=== PATIENT | female | born 1960 | race Caucasian/White ===

== ENCOUNTER → 2017-08-17 | Outpatient (CLI) | payer BC ==
--- NOTE | 2017-08-18 10:43 | NM ---
EXAMINATION TYPE: NM thyroid image w uptake DATE OF EXAM: 08/18/2017 COMPARISON: NONE HISTORY: Thyroid swelling and heat intolerance difficulty swallowing difficulty breathing TECHNIQUE: Thyroid iodine uptake is calculated and images performed after the oral administration of 330 uCi 1-123 Capsule. FINDINGS: There is normal distribution of activity throughout the gland. The 4 hour iodine uptake is calculated at 60%% (normal range 8-14%). The 24-hour iodine uptake is calculated at 79% (normal r juan jose 15-35%). On scan images there is diffuse marked increased uptake in relation to the salivary glands. No photop enic defects or focal hot nodules are evident. IMPRESSION: 1. Marked elevated uptake at both performed 24 hours. 2. Scan images appear normal without photopenic defects or focal hot nodules.
== END | disposition home or self-care (01) ==
LOC: RADNMMAIN 09:02
PROVIDERS: ATTEND Family Medicine
DX: R93.8 Abnormal findings on diagnostic imaging of other specified body structures (principal); E04.1 Nontoxic single thyroid nodule; E05.90 Thyrotoxicosis, unspecified without thyrotoxic crisis or storm
CPT/HCPCS: 78014; A9516

== ENCOUNTER 2019-05-01 16:14 | Emergency (ER) | payer BC ==
[2019-05-01 16:19] VITALS: BP 132/73; PULSE 75; RESP 18; TEMP 98.8
[2019-05-01] MEDS ORDERED: KETOROLAC 60 MG/2 ML VIAL IM STA (16:51)
--- NOTE | 2019-05-01 16:58 | ED ---
Back Pain HPI - General Chief Complaint: Back Pain/Injury Stated Complaint: BACK PAIN Time Seen by Provider: 05/01/19 16:25 Source: patient Limitations: no limitations - History of Present Illness Initial Comments: Patient is a 58-year-old female presenting to the emergency Department with complaints of left sided low back and posterior hip pain x 2 days. Patient states 3 days ago she slipped on some ice with her left foot going forward however she did not fall down. Patient states she did not feel any pain shortly after the incident. Patient states the next day she started to feel some soreness in her left gluteus and her low back. Patient states today that pain has increased and she is now having pain radiating down the left posterior leg. Patient states she stands a lot at work and feels like this is contributing to her pain. She denies any previous back surgeries or injuries. Patient tried taking Tylenol and Motrin for pain relief over did not help. Patient denies any fever, chills, saddle paresthesias, urinary incontinence. Patient has no other complaints at this time. Upon arrival to ER, vital signs are stable. - Related Data Previous Rx's Medication Instructions Recorded methylPREDNISolone [Medrol Dose 4 mg PO DIRECTED #1 pack 05/01/19 Pack] Allergies Allergy/AdvReac Type Severity Reaction Status Date / Time No Known Allergies Allergy Verified 05/01/19 16:19 Review of Systems ROS Statement: Those systems with pertinent positive or pertinent negative responses have been documented in the HPI. ROS Other: All systems not noted in ROS Statement are negative. Past Medical History Past Medical History: Thyroid Disorder History of Any Multi-Drug Resistant Organisms: None Reported Past Surgical History: No Surgical Hx Reported Past Psychological History: No Psychological Hx Reported Smoking Status: Current every day smoker Past Alcohol Use History: None Reported Past Drug Use History: None Reported General Exam - General Exam Comments Initial Comments: GENERAL: Well-appearing, well-nourished and in no acute distress. HEAD: Atraumatic, normocephalic. EYES: Pupils equal round and reactive to light, extraocular movements intact, sclera anicteric, conjunctiva are normal. ENT: Moist mucous membranes. NECK: Normal range of motion, supple without lymphadenopathy or JVD. LUNGS: Breath sounds clear to auscultation bilaterally and equal. No wheezes rales or rhonchi. HEART: Regular rate and rhythm without murmurs, rubs or gallops. ABDOMEN: Soft, nontender, normoactive bowel sounds. No guarding, no rebound. No masses appreciated. EXTREMITIES: Patient has pain with palpation of the left lumbar paraspinals as well as into the left glut, sciatic nerve area. Patient has positive straight leg raise test on the left. Patient has full trunk range of motion with pain at end range. No pitting or edema. No clubbing or cyanosis. NEUROLOGICAL: Normal speech, normal gait. PSYCH: Normal mood, normal affect. SKIN: Warm, Dry, normal turgor, no rashes or lesions noted. Limitations: no limitations Course Vital Signs 05/01/19 16:16 Temperature 98.8 F Pulse Rate 75 Respiratory 18 Rate Blood Pressure 132/73 O2 Sat by Pulse 98 Oximetry Medical Decision Making - Medical Decision Making Patient is a 58-year-old female presenting with left-sided sciatica 2 days. Patient's vitals are stable. Patient's exam is consistent with a left lumbar sciatica with radiculopathy. Patient will be given Toradol in the ER and will be started on steroids for pain relief. Patient will continue with Tylenol as needed for pain relief. Patient can also use heat and gentle massage to the area as well. Patient will follow up with her PCP this week if symptoms persist. Patient stated for discharge at this time and she is in agreement with this plan of care. Return parameters were discussed with the patient she verbalized understanding. Disposition Clinical Impression: Left-sided low back pain with sciatica Disposition: HOME SELF-CARE Condition: Stable Instructions (If sedation given, give patient instructions): Sciatica (ED) Additional Instructions: Please return to the Emergency Department if symptoms worsen or any other concerns. Take steroids as prescribed. May use Tylenol as needed for pain relief. Use also heat to the area as well as gentle massage. Follow-up with PCP if symptoms persist after one week. Prescriptions: methylPREDNISolone [Medrol Dose Pack] 4 mg PO DIRECTED #1 pack Is patient prescribed a controlled substance at d/c from ED?: No Referrals: Sarai Duarte MD [Primary Care Provider] - 1-2 days
== END 2019-05-01 17:09 | disposition home or self-care (01) ==
LOC: EC 16:14
DX: M54.42 Lumbago with sciatica, left side (principal); F17.200 Nicotine dependence, unspecified, uncomplicated; W00.0XXA Fall on same level due to ice and snow, initial encounter; Y92.89 Other specified places as the place of occurrence of the external cause
CPT/HCPCS: 99283; 96372; J1885

== ENCOUNTER → 2020-02-12 | Outpatient (CLI) | payer BC | END | disposition home or self-care (01) | LOC: LABWHC1 09:11 | PROVIDERS: ATTEND Internal Medicine Cardiovascular Disease | DX: R55 Syncope and collapse (principal) | CPT/HCPCS: 36415; 85379 ==

== ENCOUNTER 2020-02-26 10:14 | Observation (INO) | payer BC ==
[2020-02-26] MEDS ORDERED: ASPIRIN 81 MG PO STA (10:31)
[2020-02-26] MEDS ORDERED: SODIUM CHLORIDE 0.9% 1,000 ML IV STA (10:31)
[2020-02-26] MEDS ORDERED: LORazepam 1 MG TAB PO STA (10:32)
--- NOTE | 2020-02-26 10:34 | ED ---
Dizziness HPI <Chuck Washington - Last Filed: 02/26/20 12:05> - General Source: EMS, RN notes reviewed, old records reviewed Mode of arrival: EMS Limitations: no limitations <Martita Pierce - Last Filed: 02/26/20 12:19> - General Chief Complaint: Dizziness Stated Complaint: Dizziness Time Seen by Provider: 02/26/20 10:21 - History of Present Illness Initial Comments: Patient is a 5-year-old female who presents the emergency department today for evaluation of onset of dizziness lightheadedness, arm and jaw tingling this morning at 7 AM. She also reports that she had an episode of chest pain once occurred and it was a 4 out of 10. She reports is now resolved. Patient states that she's had some intermittent episodes like this and has been following with cardiology. She is scheduled to have a cardiac cath tomorrow by Dr. Mckeon. Patient states that she is a smoker. She reports that upon arriving to emergency department her chest pain has resolved but she still feels somewhat shaky and anxious. She states that she is also under immense amount of stress. Patient reports that she's had no vomiting but complains of nausea. (Martita Pierce) - Related Data Home Medications Medication Instructions Recorded Confirmed Aspirin 81 mg PO DAILY 02/22/20 02/26/20 Levothyroxine Sodium [Synthroid] 25 mcg PO DAILY 02/22/20 02/26/20 Multivitamins, Thera [Multivitamin 1 tab PO DAILY 02/26/20 02/26/20 (formulary)] Nitroglycerin Sl Tabs [Nitrostat] 0.4 mg SUBLINGUAL Q5M PRN 02/26/20 02/26/20 Allergies Allergy/AdvReac Type Severity Reaction Status Date / Time No Known Allergies Allergy Verified 02/26/20 11:19 Review of Systems ROS Other: All systems not noted in ROS Statement are negative. <Chuck Washington - Last Filed: 02/26/20 12:05> ROS Other: All systems not noted in ROS Statement are negative. <Martita Pierce - Last Filed: 02/26/20 12:19> ROS Statement: Those systems with pertinent positive or pertinent negative responses have been documented in the HPI. Past Medical History Past Medical History: Thyroid Disorder Additional Past Medical History / Comment(s): dizzy, lightheaded, SOB w/exertion, recent stress test, chest tightness History of Any Multi-Drug Resistant Organisms: None Reported Past Surgical History: Hysterectomy Past Anesthesia/Blood Transfusion Reactions: No Reported Reaction, Family History of Problems w/ Anesthesia Additional Past Anesthesia/Blood Transfusion Reaction / Comment(s): mom & sister slow to wake up Past Psychological History: No Psychological Hx Reported Smoking Status: Current every day smoker Past Alcohol Use History: Occasional Past Drug Use History: None Reported <Martita Pierce - Last Filed: 02/26/20 12:19> General Exam Limitations: no limitations General appearance: alert, in no apparent distress Head exam: Present: atraumatic, normocephalic, normal inspection Eye exam: Present: normal appearance, PERRL, EOMI. Absent: scleral icterus, conjunctival injection, periorbital swelling ENT exam: Present: normal exam, mucous membranes moist Neck exam: Present: normal inspection. Absent: tenderness, meningismus, lymphadenopathy Respiratory exam: Present: normal lung sounds bilaterally Cardiovascular Exam: Present: regular rate, normal rhythm, normal heart sounds. Absent: systolic murmur, diastolic murmur, rubs, gallop, clicks GI/Abdominal exam: Present: soft, normal bowel sounds. Absent: distended, tenderness, guarding, rebound, rigid Extremities exam: Present: normal inspection, full ROM, normal capillary refill. Absent: tenderness, pedal edema, joint swelling, calf tenderness Back exam: Present: normal inspection Neurological exam: Present: alert, oriented X3, CN II-XII intact Psychiatric exam: Present: normal affect <Martita Pierce - Last Filed: 02/26/20 12:19> - General Exam Comments Initial Comments: 5-year-old female. Alert and oriented 3. Patient appears somewhat anxious but no acute distress. (Martita Pierce) Course <Chuck Washington - Last Filed: 02/26/20 12:05> Vital Signs 02/26/20 02/26/20 02/26/20 10:18 10:20 11:30 Temperature 98.3 F Pulse Rate 60 63 Pulse Rate [ 60 [employer] ] Respiratory 16 18 Rate Blood Pressure 160/79 135/84 O2 Sat by Pulse 98 99 Oximetry - Reevaluation(s) Reevaluation #1: 02/26/20 12:05 PA supervision: I proceeded evaluate this case patient with dizziness lightheadedness jaw discomfort some chest discomfort. Initial workup was negative she is scheduled for a stress test tomorrow. Due to the etiology may suspected of cardiac involvement and the stresses Contreras patient be admitted for ob servation and evaluation by cardiology. I did discuss the case with Dr. Puri (Chukc Washington) Medical Decision Making - Lab Data Result diagrams: 02/26/20 10:39 02/26/20 10:39 <Chuck Washington - Last Filed: 02/26/20 12:05> - Lab Data Result diagrams: 02/26/20 10:39 02/26/20 10:39 - Radiology Data Radiology results: report reviewed <Martita Pierce - Last Filed: 02/26/20 12:19> - Medical Decision Making Patient is a 5-year-old female who presents to the ER today for evaluation with complaints of episode of dizziness, complaint of an short brief episode of chest pain and afterward had some shakiness. She initially appeared quite anxious. She was given Ativan and aspirin and does report improvement. She is scheduled for a cardiac cath tomorrow as she had an abnormal stress test recently. I discussed at this time that her troponin and lab work is stable. Advised Patient that we like to admit the Patient for cardiac observation with cardiac consult with her upcoming cardiac cath. (Martita Pierce) - Lab Data Lab Results 02/26/20 02/26/20 02/26/20 Range/Units 10:39 10:39 10:39 WBC 6.6 (3.8-10.6) k/uL RBC 4.48 (3.80-5.40) m/uL Hgb 14.4 (11.4-16.0) gm/dL Hct 45.0 (34.0-46.0) % MCV 100.4 H (80.0-100.0) fL MCH 32.2 (25.0-35.0) pg MCHC 32.1 (31.0-37.0) g/dL RDW 12.0 (11.5-15.5) % Plt Count 290 (150-450) k/uL Neutrophils % 66 % Lymphocytes % 24 % Monocytes % 6 % Eosinophils % 2 % Basophils % 1 % Neutrophils # 4.3 (1.3-7.7) k/uL Lymphocytes # 1.6 (1.0-4.8) k/uL Monocytes # 0.4 (0-1.0) k/uL Eosinophils # 0.1 (0-0.7) k/uL Basophils # 0.1 (0-0.2) k/uL PT 10.0 (9.0-12.0) sec INR 1.0 (<1.2) APTT 23.4 (22.0-30.0) sec Sodium 138 (137-145) mmol/L Potassium 4.5 (3.5-5.1) mmol/L Chloride 104 (98-107) mmol/L Carbon Dioxide 27 (22-30) mmol/L Anion Gap 7 mmol/L BUN 17 (7-17) mg/dL Creatinine 0.57 (0.52-1.04) mg/dL Est GFR (CKD-EPI)AfAm >90 (>60 ml/min/1.73 sqM) Est GFR (CKD-EPI)NonAf >90 (>60 ml/min/1.73 sqM) Glucose 106 H (74-99) mg/dL Calcium 9.3 (8.4-10.2) mg/dL Magnesium 2.0 (1.6-2.3) mg/dL Total Bilirubin 0.5 (0.2-1.3) mg/dL AST 26 (14-36) U/L ALT 18 (4-34) U/L Alkaline Phosphatase 88 (38-126) U/L Troponin I (0.000-0.034) ng/mL NT-Pro-B Natriuret Pep pg/mL Total Protein 7.2 (6.3-8.2) g/dL Albumin 4.3 (3.5-5.0) g/dL 02/26/20 02/26/20 Range/Units 10:39 10:39 WBC (3.8-10.6) k/uL RBC (3.80-5.40) m/uL Hgb (11.4-16.0) gm/dL Hct (34.0-46.0) % MCV (80.0-100.0) fL MCH (25.0-35.0) pg MCHC (31.0-37.0) g/dL RDW (11.5-15.5) % Plt Count (150-450) k/uL Neutrophils % % Lymphocytes % % Monocytes % % Eosinophils % % Basophils % % Neutrophils # (1.3-7.7) k/uL Lymphocytes # (1.0-4.8) k/uL Monocytes # (0-1.0) k/uL Eosinophils # (0-0.7) k/uL Basophils # (0-0.2) k/uL PT (9.0-12.0) sec INR (<1.2) APTT (22.0-30.0) sec Sodium (137-145) mmol/L Potassium (3.5-5.1) mmol/L Chloride (98-107) mmol/L Carbon Dioxide (22-30) mmol/L Anion Gap mmol/L BUN (7-17) mg/dL Creatinine (0.52-1.04) mg/dL Est GFR (CKD-EPI)AfAm (>60 ml/min/1.73 sqM) Est GFR (CKD-EPI)NonAf (>60 ml/min/1.73 sqM) Glucose (74-99) mg/dL Calcium (8.4-10.2) mg/dL Magnesium (1.6-2.3) mg/dL Total Bilirubin (0.2-1.3) mg/dL AST (14-36) U/L ALT (4-34) U/L Alkaline Phosphatase (38-126) U/L Troponin I <0.012 (0.000-0.034) ng/mL NT-Pro-B Natriuret Pep 32 pg/mL Total Protein (6.3-8.2) g/dL Albumin (3.5-5.0) g/dL 02/26/20 10:54 EKG performed at 10:39 AM shows nonspecific T-wave abnormality. Abnormal EKG. Ventricular rate of [address] interval is 148 ms. Chest Patient is a 82 ms. QT QTc is 412/421 ms. (Martita Pierce) - Radiology Data Chest x-ray shows no acute cardio coronary process. (Martita Pierce) Disposition <Chuck Washington - Last Filed: 02/26/20 12:05> Is patient prescribed a controlled substance at d/c from ED?: No Time of Disposition: 12:18 <Martita Pierce - Last Filed: 02/26/20 12:19> Clinical Impression: Chest pain, Dizziness Disposition: ADMITTED IP TO THIS HOSP Condition: Stable Referrals: Sarai Duarte MD [Primary Care Provider] - 1-2 days
[2020-02-26 11:17] LABS: ALT 18 U/L (4-34); AST 26 U/L (14-36); African American GFR (CKD) >90 (>60 ml/min/1.73 sqM); Albumin 4.3 g/dL (3.5-5.0); Alkaline Phosphatase 88 U/L (38-126); Anion Gap 7 mmol/L; Blood Urea Nitrogen 17 mg/dL (7-17); Calcium 9.3 mg/dL (8.4-10.2); Carbon Dioxide 27 mmol/L (22-30); Chloride 104 mmol/L (98-107); Glucose 106 mg/dL (74-99); Non-African American GFR(CKD) >90 (>60 ml/min/1.73 sqM); Potassium 4.5 mmol/L (3.5-5.1); Sodium 138 mmol/L (137-145); Total Bilirubin 0.5 mg/dL (0.2-1.3); Total Protein 7.2 g/dL (6.3-8.2)
[2020-02-26 11:19] LABS: Basophils # (A) 0.1 k/uL (0-0.2); Basophils % (A) 1 %; Eosinophils # (A) 0.1 k/uL (0-0.7); Eosinophils % (A) 2 %; HGB 14.4 gm/dL (11.4-16.0); Lymphocytes # (A) 1.6 k/uL (1.0-4.8); Lymphocytes % (A) 24 %; MCH 32.2 pg (25.0-35.0); MCHC 32.1 g/dL (31.0-37.0); MCV 100.4 fL (80.0-100.0); Mean Platelet Volume 7.4; Monocytes # (A) 0.4 k/uL (0-1.0); Monocytes % (A) 6 %; Neutrophils # (A) 4.3 k/uL (1.3-7.7); Neutrophils % (A) 66 %; Platelet Count 290 k/uL (150-450); RBC 4.48 m/uL (3.80-5.40); WBC 6.6 k/uL (3.8-10.6)
--- NOTE | 2020-02-26 11:28 | XR ---
EXAMINATION TYPE: XR chest 2V DATE OF EXAM: 02/26/2020 CLINICAL HISTORY: Chest pain TECHNIQUE: Frontal and lateral views of the chest are obtained. COMPARISON: None FINDINGS: The cardiomediastinal silhouette is within normal limits for size. Pulmonary vasculature i s normal. There is no focal air space opacity, pleural effusion, or pneumothorax seen. The osseous st ructures are intact. IMPRESSION: No acute cardiopulmonary process.
[2020-02-26 11:30] LABS: Partial Thromboplastin Time 23.4 sec (22.0-30.0)
[2020-02-26] MEDS ORDERED: NITROGLYCERIN SL TABS 0.4 MG TAB SUBLINGUAL PRN ×2 (12:19→16:10)
[2020-02-26] MEDS ORDERED: MORPHINE SULFATE 4 MG/ML SYRINGE IV PRN (12:19)
[2020-02-26] MEDS ORDERED: ALPRAZolam 0.25 MG TAB PO PRN (13:58)
[2020-02-26] MEDS ORDERED: ALPRAZolam 0.5 MG TAB PO PRN (13:58)
[2020-02-26] MEDS ORDERED: SODIUM CHLORIDE 0.9% 1,000 ML in EMPTY BAG 1 BAG IV ONE (13:58)
[2020-02-26] MEDS ORDERED: HEPARIN SODIUM,PORCINE 5,000 UNIT/ML 1 ML VIAL IV ONE (13:58)
[2020-02-26] MEDS ORDERED: HEPARIN SODIUM,PORCINE 5,000 UNIT/ML 1 ML VIAL IV PRN (13:58)
[2020-02-26] MEDS ORDERED: HEPARIN SOD,PORK IN 0.45% NACL 25,000 UNIT in 0.45% NACL 1 250ML.BAG IV SCH (14:00)
--- NOTE | 2020-02-26 14:13 | P.CRDCN ---
History of Present Illness History of present illness: HISTORY OF PRESENTING ILLNESS This is a pleasant 59-year-old female past medical history significant for hypothyroidism and chronic nicotine dependence. She follows in the office with Dr. Lemon. We have been asked to see in consultation for chest pain. She recently established in the office with Dr. Lemon secondary to exertional shortness of breath and increased fatigue. He set her up for a stress test and echocardiogram in the office echocardiogram revealed mildly impaired LV function with ejection fraction 45-50% with no segmental wall motion abnormalities and normal diastolic function. During her exercise stress test she developed chest tightness and had [address] depression and was unable to complete the stress test due to chest pain shortness of breath and fatigue. Due to those abnormalities Dr. Lemon had scheduled her for an outpatient cardiac catheterizat ion tomorrow. She woke up this morning feeling normal and herself. She ate breakfast and started cleaning the bathroom. When she was cleaning the bathroom she started feeling tightness in the left precordial region associated with numbness in her left hand and numbness in the left jaw and face. She also felt dizzy and lightheaded like she was going to pass out. She called her brother who lives across the street. She states he told her he looked meyer and he called EMS. Her chest discomfort was related to exertion or activity and would improve when she sat down to rest. She is currently chest pain-free sitting in bed resting comfortably eating lunch. Orthostatic vital signs were unremarkable and telemetry tracings are reveals sinus mechanism with no arrhythmia. DIAGNOSTICS EKG reveals sinus mechanism with nonspecific T wave abnormalities noted in the lateral leads and flattening T waves inferiorly. Chest xray negative for an acute cardiopulmonary process. Laboratory reviewed, WBC 6.6, hemoglobin 14.4, platelets 290, sodium 138, potassium 4.5, creatinine 0.57, magnesium 2.0, react enzymes negative 1 and NT proBNP 32. Current cardiac medications include aspirin 81 mg daily. REVIEW OF SYSTEMS At the time of my exam: CONSTITUTIONAL: Denies fever or chills. CARDIOVASCULAR: Denies chest pain, shortness of breath, orthopnea, PND or palpitations. RESPIRATORY: Denies cough. GASTROINTESTINAL: Denies abdominal pain, diarrhea, constipation, nausea or vomiting. MUSCULOSKELETAL: Denies myalgias. NEUROLOGIC: Denies numbness, tingling or weakness. ENDOCRINE: Denies fatigue, weight change, polydipsia or polyurina. GENITOURINARY: Denies burning, hematuria or urgency with micturation. HEMATOLOGIC: Denies history of anemia or bleeding. PHYSICAL EXAMINATION Blood pressure 135/84 heart rate 63 afebrile and maintaining oxygen saturation on room air. CONSTITUTIONAL: No apparent distress. HEENT: Head is normocephalic. Pupils are equal, round. Sclerae anicteric. Mucous membranes of the mouth are moist. No JVD. No carotid bruit. CHEST EXAMINATION: Lungs are clear to auscultation. No chest wall tenderness is noted on palpation or with deep breathing. HEART EXAMINATION: Regular rate and rhythm. S1, S2 heard. No murmurs, gallops or rub. ABDOMEN: Soft, nontender. Positive bowel sounds. EXTREMITIES: 2+ peripheral pulses, no lower extremity edema and no calf tenderness. NEUROLOGIC EXAMINATION: Patient is awake, alert and oriented x3. ASSESSMENT Unstable angina Abnormal outpatient stress test Hypothyroidism Chronic nicotine dependence PLAN Continue to obtain serial cardiac enzymes to rule out an acute event. Initiate heparin infusion. Proceed with cardiac catheterization tomorrow as previously discussed. I have discussed the risks, benefits and alternative therapies for the above-mentioned procedure and for both sedation/analgesia as well as necessary blood product administration, if indicated, as they pertain to this patient. The patient has indicated understanding and acceptance of the risks and procedures discussed. Questions have been answered appropriately and she is agreeable to move forward with the above stated procedure. She'll be nothing by mouth after midnight tonight. Further recommendations to follow based upon clinical course. Thank you kindly for this consultation. Nurse Practitioner note has been reviewed, I agree with a documented findings and plan of care. Patient was seen and examined. Past Medical History Past Medical History: Thyroid Disorder Additional Past Medical History / Comment(s): dizzy, lightheaded, SOB w/exertion, recent stress test pt unable to finish , chest tightness. History of Any Multi-Drug Resistant Organisms: None Reported Past Surgical History: Hysterectomy Past Anesthesia/Blood Transfusion Reactions: No Reported Reaction, Family History of Problems w/ Anesthesia Additional Past Anesthesia/Blood Transfusion Reaction / Comment(s): mom & sister slow to wake up Past Psychological History: No Psychological Hx Reported Smoking Status: Current every day smoker Past Alcohol Use History: Occasional Additional Past Alcohol Use History / Comment(s): 1/2ppd or less off & on for 30 yrs. Past Drug Use History: None Reported Medications and Allergies Home Medications Medication Instructions Recorded Confirmed Type Aspirin 81 mg PO DAILY 02/22/20 02/26/20 History Levothyroxine Sodium [Synthroid] 25 mcg PO DAILY 02/22/20 02/26/20 History Multivitamins, Thera [Multivitamin 1 tab PO DAILY 02/26/20 02/26/20 History (formulary)] Nitroglycerin Sl Tabs [Nitrostat] 0.4 mg SUBLINGUAL Q5M PRN 02/26/20 02/26/20 History Allergies Allergy/AdvReac Type Severity Reaction Status Date / Time No Known Allergies Allergy Verified 02/26/20 11:19 Physical Exam Vitals: Vital Signs Temp Pulse Pulse Pulse Pulse Pulse Resp 02/26/20 13:17 61 65 57 L 16 02/26/20 13:15 98.0 F 61 65 57 L 16 02/26/20 12:34 98.3 F 63 18 02/26/20 11:30 63 18 02/26/20 10:20 60 02/26/20 10:18 98.3 F 60 16 BP BP BP BP Pulse Ox 02/26/20 13:17 02/26/20 13:15 130/82 123/80 127/76 100 02/26/20 12:34 135/84 99 02/26/20 11:30 135/84 99 02/26/20 10:20 02/26/20 10:18 160/79 98 Intake and Output 02/25/20 02/26/20 02/26/20 22:59 06:59 14:59 Intake Total 200 Balance 200 Intake: Oral 200 Other: Voiding Method Toilet Weight 77.111 kg Results 02/26/20 10:39 02/26/20 10:39 Cardiac Enzymes 02/26/20 02/26/20 Range/Units 10:39 10:39 AST 26 (14-36) U/L Troponin I <0.012 (0.000-0.034) ng/mL Coagulation 02/26/20 Range/Units 10:39 PT 10.0 (9.0-12.0) sec APTT 23.4 (22.0-30.0) sec CBC 02/26/20 Range/Units 10:39 WBC 6.6 (3.8-10.6) k/uL RBC 4.48 (3.80-5.40) m/uL Hgb 14.4 (11.4-16.0) gm/dL Hct 45.0 (34.0-46.0) % Plt Count 290 (150-450) k/uL Comprehensive Metabolic Panel 02/26/20 Range/Units 10:39 Sodium 138 (137-145) mmol/L Potassium 4.5 (3.5-5.1) mmol/L Chloride 104 (98-107) mmol/L Carbon Dioxide 27 (22-30) mmol/L BUN 17 (7-17) mg/dL Creatinine 0.57 (0.52-1.04) mg/dL Glucose 106 H (74-99) mg/dL Calcium 9.3 (8.4-10.2) mg/dL AST 26 (14-36) U/L ALT 18 (4-34) U/L Alkaline Phosphatase 88 (38-126) U/L Total Protein 7.2 (6.3-8.2) g/dL Albumin 4.3 (3.5-5.0) g/dL Current Medications Generic Name Dose Route Start Last Admin Trade Name Freq PRN Reason Stop Dose Admin Aspirin 325 mg 02/27/20 09:00 Aspirin 325 Mg Tab PO DAILY [id number] Morphine Sulfate 4 mg 02/26/20 12:19 Morphine Sulfate 4 Mg/Ml Syringe IV Q5M PRN Chest Pain Nitroglycerin 0.4 mg 02/26/20 12:19 Nitroglycerin Sl Tabs 0.4 Mg Tab SUBLINGUAL Q5M PRN Chest Pain Intake and Output 02/25/20 02/26/20 02/26/20 22:59 06:59 14:59 Intake Total 200 Balance 200 Intake: Oral 200 Other: Voiding Method Toilet Weight 77.111 kg Patient Weight 02/27/20 06:59 Weight 77.111 kg 02/26/20 10:39 02/26/20 10:39
--- NOTE | 2020-02-26 16:50 | P.HPIM ---
History of Present Illness H&P Date: 02/26/20 Chief Complaint: Chest pain Marina Mcgill, is a 59 -year-old female who presented to [facility] emergency room with a chief complaint of chest pain, patient describes a tightness sensation in the left chest area with numbness radiating to the left arm in the left side of her jaw, patient was also feeling dizzy, patient called EMS and was brought into emergency room. Patient was recently referred to the cardiology office due to exertional shortness of breath, she underwent an echocardiogram that revealed mildly impaired left ventricular function with ejection fraction of 45-50%, she underwent a stress test which was positive for [address] depression patient was unable to complete the stress test due to chest tightness, she was scheduled to have cardiac catheterization tomorrow. Patient has a known history of hypothyroidism, chronic tobacco use, low back pain, history of thyroid no chills. Patient was seen and examined on the telemetry floor, she is alert and oriented 3 in no apparent distress, she is maintained on IV heparin, she denies any ches t pain or tightness at this time, there is no fever or chills no headache or dizziness no shortness of breath no cough no palpitation no nausea or vomiting no abdominal pain no diarrhea no blood in the stools no burning with urination no frequency or urgency no hematuria. Past Medical History Past Medical History: Thyroid Disorder Additional Past Medical History / Comment(s): dizzy, lightheaded, SOB w/exertion, recent stress test pt unable to finish , chest tightness. History of Any Multi-Drug Resistant Organisms: None Reported Past Surgical History: Hysterectomy Past Anesthesia/Blood Transfusion Reactions: No Reported Reaction, Family History of Problems w/ Anesthesia Additional Past Anesthesia/Blood Transfusion Reaction / Comment(s): mom & sister slow to wake up Past Psychological History: No Psychological Hx Reported Smoking Status: Current every day smoker Past Alcohol Use History: Occasional Additional Past Alcohol Use History / Comment(s): 1/2ppd or less off & on for 30 yrs. Past Drug Use History: None Reported Medications and Allergies Home Medications Medication Instructions Recorded Confirmed Type Aspirin 81 mg PO DAILY 02/22/20 02/26/20 History Levothyroxine Sodium [Synthroid] 25 mcg PO DAILY 02/22/20 02/26/20 History Multivitamins, Thera [Multivitamin 1 tab PO DAILY 02/26/20 02/26/20 History (formulary)] Nitroglycerin Sl Tabs [Nitrostat] 0.4 mg SUBLINGUAL Q5M PRN 02/26/20 02/26/20 History Allergies Allergy/AdvReac Type Severity Reaction Status Date / Time No Known Allergies Allergy Verified 02/26/20 11:19 Physical Exam Vitals: Vital Signs Temp Pulse Pulse Pulse Pulse Pulse Resp 02/26/20 15:00 61 65 57 L 16 02/26/20 13:17 61 65 57 L 16 02/26/20 13:15 98.0 F 61 65 57 L 16 02/26/20 12:34 98.3 F 63 18 02/26/20 11:30 63 18 02/26/20 10:20 60 02/26/20 10:18 98.3 F 60 16 BP BP BP BP Pulse Ox 02/26/20 15:00 02/26/20 13:17 02/26/20 13:15 130/82 123/80 127/76 100 02/26/20 12:34 135/84 99 02/26/20 11:30 135/84 99 02/26/20 10:20 02/26/20 10:18 160/79 98 Intake and Output 02/26/20 02/26/20 02/26/20 06:59 14:59 22:59 Intake Total 200 Balance 200 Intake: Oral 200 Other: Voiding Method Toilet Toilet Weight 77.111 kg In general patient is alert and oriented 3 HEENT head normocephalic and atraumatic Neck is supple no JVD no goiter no lymphadenopathy Chest exam reveals a few scattered crackles no wheezing Cardiac exam reveals regular heart sounds no gallops no murmurs Abdomen is soft nontender no organomegaly with normal bowel sounds Extremity exam reveals no edema no cyanosis or clubbing Neurological examination reveals no gross focal deficit Results CBC & Chem 7: 02/26/20 10:39 02/26/20 10:39 Labs: Abnormal Lab Results - Last 24 Hours (Table) 02/26/20 02/26/20 Range/Units 10:39 10:39 MCV 100.4 H (80.0-100.0) fL Glucose 106 H (74-99) mg/dL Thrombosis Risk Factor Assmnt - Choose All That Apply Each Factor Represents 1 point: Age 41-60 years, Obesity (BMI >25) Other Risk Factors: No Other congenital or acquired thrombophilia - If yes, enter type in comment: No Thrombosis Risk Factor Assessment Total Risk Factor Score: 2 Thrombosis Risk Factor Assessment Level: Low Risk Assessment and Plan Plan: 1. Episodes of chest pain, chest tightness with numbness radiating to the left arm on the left side of the jaw, patient was admitted to telemetry floor serial troponin levels were ordered so far troponins are negative, patient is scheduled for cardiac catheterization in a.m. tomorrow. 2. Underlying history of hypothyroidism maintained on Synthroid 25 g daily Will check TSH continue Synthroid at this time 3. Underlying history of tobacco abuse patient was counseled in length in regard to smoking cessation, counseling more than 5 minutes today 4. Episodes of dizziness and presyncope, will check carotid Doppler Patient was seen and evaluated by cardiology plan is to proceed with cardiac catheterization in a.m. At this time home medications reviewed and reordered Will check TSH Check carotid Doppler Will follow in a.m.
[2020-02-26] MEDS ORDERED: ZOLPIDEM 5 MG TAB PO PRN (16:56)
[2020-02-26] MEDS: METOPROLOL TARTRATE 12.5 MG TAB PO SCH (17:02)
--- NOTE | 2020-02-26 19:41 | US ---
EXAMINATION TYPE: US carotid duplex BILAT DATE OF EXAM: 02/26/2020 COMPARISON: NONE CLINICAL HISTORY: dizziness. Dizziness x 1.5 weeks. Previous smoker. EXAM MEASUREMENTS: RIGHT: Peak Systolic Velocity (PSV) cm/sec ----- Right CCA: 57.8 ----- Right ICA: 69.2 ----- Right ECA: 63.0 ICA/CCA ratio: 1.2 RIGHT: End Diastole cm/sec ----- Right CCA: 20.4 ----- Right ICA: 25.6 ----- Right ECA: 12.4 LEFT: Peak Systolic Velocity (PSV) cm/sec ----- Left CCA: 52.9 ----- Left ICA: 67.7 ----- Left ECA: 61.6 ICA/CCA ratio: 1.3 LEFT: End Diastole cm/sec ----- Left CCA: 18.0 ----- Left ICA: 27.6 ----- Left ECA: 18.0 VERTEBRALS (direction of flow): Right Vertebral: Antegrade Left Vertebral: Antegrade Rhythm: Normal Intimal thickening seen bilaterally. No elevated velocities at this time. Hypoechoic area with hyperechoic center seen left neck measurin.0 x 1.2 x 0.7 cm. IMPRESSION: There is antegrade flow in the vertebral arteries. Images and measurements suggest less than 20% sten osis in both internal carotid arteries. Criteria for Assigning % of Stenosis / Diameter reduction (Estimation based on the indirect measurements of the internal carotid artery velocities (ICA PSV). 1. Normal (no stenosis)=ICA PSV < 125 cm/s: ratio < 2.0: ICA EDV<40 cm/s. 2. Less than 50% stenosis=ICA PSV < 125 cm/s: ratio < 2.0: ICA EDV<40 cm/s. 3. 50 to 69% stenosis=ICA PSV of 125 to 230 cm/s: ration 2.0 ? 4.0: ICA EDV 40-100 cm/s. 4. Greater than 70% stenosis to near occlusion= ICA PSV > 230 cm/s: ratio > 4.0: ICA EDV > 100 cm/s. 5. Near occlusion= ICA PSV velocities may be low or undetectable: variable ratio and ICA EDV. 6. Total occlusion=unable to detect flow.
[2020-02-27 05:38] LABS: Glucose,Whole Blood 86 mg/dL (75-99)
[2020-02-27] MEDS: METOPROLOL TARTRATE 12.5 MG TAB PO SCH (05:40)
[2020-02-27] MEDS ORDERED: ASPIRIN 325 MG TAB PO ONE (06:00)
[2020-02-27] MEDS ORDERED: LEVOTHYROXINE 25 MCG TAB PO SCH (06:30)
[2020-02-27 07:49] LABS: Basophils # (A) 0.1 k/uL (0-0.2); Basophils % (A) 1 %; Eosinophils # (A) 0.1 k/uL (0-0.7); Eosinophils % (A) 2 %; HCT 42.2 % (34.0-46.0); HGB 13.5 gm/dL (11.4-16.0); Lymphocytes # (A) 1.6 k/uL (1.0-4.8); Lymphocytes % (A) 28 %; MCH 32.6 pg (25.0-35.0); MCHC 32.1 g/dL (31.0-37.0); MCV 101.6 fL (80.0-100.0); Mean Platelet Volume 7.5; Monocytes # (A) 0.3 k/uL (0-1.0); Monocytes % (A) 4 %; Neutrophils # (A) 3.6 k/uL (1.3-7.7); Neutrophils % (A) 63 %; Platelet Count 248 k/uL (150-450); RBC 4.15 m/uL (3.80-5.40); RDW 12.2 % (11.5-15.5); WBC 5.8 k/uL (3.8-10.6)
[2020-02-27 08:04] LABS: Partial Thromboplastin Time 48.8 sec (22.0-30.0); Prothrombin Time 10.7 sec (9.0-12.0)
[2020-02-27 08:26] LABS: Cholesterol 207 mg/dL (<200); HDL Cholesterol 74 mg/dL (40-60); LDL Cholesterol,Calculated 120 mg/dL (0-99); Triglycerides 67 mg/dL (<150)
[2020-02-27 08:28] VITALS: TEMP 98
[2020-02-27] MEDS ORDERED: ASPIRIN 81 MG PO SCH (09:00)
[2020-02-27] MEDS ORDERED: ASPIRIN 325 MG TAB PO SCH (09:00)
[2020-02-27] MEDS ORDERED: MULTIVITAMINS, THERA 1 EACH TAB PO SCH (09:00)
[2020-02-27] MEDS ORDERED: ATORVASTATIN 80 MG TAB PO ONE (09:00)
[2020-02-27] MEDS ORDERED: LIDOCAINE 1% INJ 10MG/ML (20 ML MDV) SQ ONE (10:24)
[2020-02-27] MEDS ORDERED: MIDAZOLAM 2 MG/2 ML VIAL IVP ONE (10:24)
[2020-02-27] MEDS ORDERED: fentaNYL (PF) 50 MCG/ML 2 ML AMP IVP ONE (10:24)
[2020-02-27] MEDS ORDERED: IV FLUID CONTINUATION 1,000 ML IV ONE (10:27)
[2020-02-27] MEDS ORDERED: IOPAMIDOL-370 125ML BTL INJ ONE (10:36)
[2020-02-27 11:15] VITALS: RESP 16
--- NOTE | 2020-02-27 14:01 | P.DS ---
Providers Date of admission: 02/26/20 12:27 Expected date of discharge: 02/27/20 Attending physician: Anastasia Puri Consults: 02/26/20 12:19 Consult Physician Urgent Consulting Provider: Elver Lemon Consult Reason/Comments: Chest pain, upcoming cardiac cath Do you want consulting provider notified?: Yes Primary care physician: Sarai Duarte Hospital Course: Discharge diagnosis 1. Episodes of chest pain, chest tightness with numbness radiating to the left arm on the left side of the jaw, patient was admitted to telemetry floor serial troponin levels were ordered so far troponins are negative.status post cardiac catheterization That was clean. Per cardiac services patient can be discharged home and follow-up outpatient. 2. Underlying history of hypothyroidism maintained on Synthroid 25 g daily Will check TSH continue Synthroid at this time. TSH level 4.510 3. Underlying history of tobacco abuse patient was counseled in length in regard to smoking cessation, counseling more than 5 minutes today 4. Episodes of dizziness and presyncope, will check carotid Doppler Carotid Doppler completed showing hypperechogic area with hypoerchoic Center seen left neck measuring 3.01.20.7 cm. Findings were discussed with patient. Patient will need to undergo computed tomography scan with contrast outpatient. Patient unable to get inpatient due to cardiac cath and receiving contrast during procedure. Patient verbalized understanding that she does need to follow up with this with her PCP Dr. adelia Mcgill, is a 59 -year-old female who presented to [facility] emergency room with a chief complaint of chest pain, patient describes a tightness sensation in the left chest area with numbness radiating to the left arm in the left side of her jaw, patient was also feeling dizzy, patient called EMS and was brought into emergency room. Patient was recently referred to the cardiology office due to exertional shortness of breath, she underwent an echocardiogram that revealed mildly impaired left ventricular function with ejection fraction of 45-50%, she underwent a stress test which was positive for [address] depression patient was unable to complete the stress test due to chest tightness, she was scheduled to have cardiac catheterization tomorrow. Patient has a known history of hypothyroidism, chronic tobacco use, low back pain, history of thyroid no chills. Patient was seen and examined on the telemetry floor, she is alert and oriented 3 in no apparent distress, she is maintained on IV heparin, she denies any chest pain or tightness at this time, there is no fever or chills no headache or dizziness no shortness of breath no cough no palpitation no nausea or vomiting n o abdominal pain no diarrhea no blood in the stools no burning with urination no frequency or urgency no hematuria. On 02/27/2020. Patient is status post cardiac catheterization. No significant findings seen on cardiac catheterization per cardiology services. Patient has been cleared for discharge from cardiology standpoint. Carotid Doppler results reviewed with patient the patient verbalized understanding that she does need to follow-up with her PCP Dr. duarte and schedule outpatient computed tomography scan with contrast. This time patient is resting comfortably in bed. Patient denies chest pain or shortness breath. Patient denies nausea vomiting or diarrhea. Patient denies any urinary burning or frequency I performed an examination of the patient and discussed their management with the Nurse Practitioner. I have reviewed the Nurse Practitioner's notes and agree with the documented findings and plan of care Patient Condition at Discharge: Stable Plan - Discharge Summary Discharge Rx Participant: No New Discharge Prescriptions: Continue Levothyroxine Sodium [Synthroid] 25 mcg PO DAILY Aspirin 81 mg PO DAILY Nitroglycerin Sl Tabs [Nitrostat] 0.4 mg SUBLINGUAL Q5M PRN PRN Reason: Chest Pain Multivitamins, Thera [Multivitamin (formulary)] 1 tab PO DAILY Discharge Medication List Aspirin 81 mg PO DAILY 02/22/20 [History] Levothyroxine Sodium [Synthroid] 25 mcg PO DAILY 02/22/20 [History] Multivitamins, Thera [Multivitamin (formulary)] 1 tab PO DAILY 02/26/20 [History] Nitroglycerin Sl Tabs [Nitrostat] 0.4 mg SUBLINGUAL Q5M PRN 02/26/20 [History] Follow up Appointment(s)/Referral(s): Sarai Duarte MD [Primary Care Provider] - 1-2 days Elver Lemon MD [STAFF PHYSICIAN] - 1 Week Activity/Diet/Wound Care/Special Instructions: Activity as tolerated Diet heart healthy
[2020-02-27 15:04] VITALS: PULSE 57
--- NOTE | 2020-02-27 15:56 | CC ---
CARDIAC CATHETERIZATION REPORT INDICATION: Unstable angina. PROCEDURE NOTE: After obtaining informed consent, left heart catheterization and coronary angiogram were performed via the right femoral artery using standard Sylvia catheters. The patient tolerated the procedure well without any obvious immediate complication. A femoral angiogram was performed and Angio-Seal was deployed. The patient received moderate conscious sedation. Total sedation time was 16 minutes. FINDINGS: HEMODYNAMICS: Left ventricular end-diastolic pressure is 6 to 8 mm. There is no significant gradient across the aortic valve. LEFT VENTRICULOGRAM: Left ventriculogram was not performed. ANGIOGRAPHIC DATA: LEFT MAIN CORONARY ARTERY: This is a short vessel and is free of stenosis. It divides into left anterior descending coronary artery and circumflex coronary artery. LAD and its branches, circumflex coronary artery and its branches are free of significant stenosis. RIGHT CORONARY ARTERY: This is a large dominant vessel and is free of significant disease. CONCLUSIONS: 1. Normal coronary arteries. 2. Normal left ventricular end-diastolic pressure. PLAN: I reviewed angiographic data with the patient and told her that her chest discomfort is noncardiac in origin. Her management is going to be in the form of risk factor modification, optimal medical therapy. MMODL / IJN: [id number] /
[2020-02-27 16:14] VITALS: BP 102/68
[2020-02-28] MEDS ORDERED: ASPIRIN 81 MG PO SCH (09:00)
== END 2020-02-27 19:37 | disposition home or self-care (01) ==
LOC: EC 10:14 → 3NCARDOBS 12:27
PROVIDERS: ADMIT Internal Medicine; ATTEND Internal Medicine
DX: R07.89 Other chest pain (principal); R20.2 Paresthesia of skin; R94.39 Abnormal result of other cardiovascular function study; R94.31 Abnormal electrocardiogram [ECG] [EKG]; R42 Dizziness and giddiness; R11.0 Nausea; F43.9 Reaction to severe stress, unspecified; F41.9 Anxiety disorder, unspecified; E03.9 Hypothyroidism, unspecified; F17.210 Nicotine dependence, cigarettes, uncomplicated; M54.5 Low back pain; E66.9 Obesity, unspecified; Z68.29 Body mass index [BMI] 29.0-29.9, adult; R55 Syncope and collapse; Z79.82 Long term (current) use of aspirin; Z79.890 Hormone replacement therapy; Z90.710 Acquired absence of both cervix and uterus; Z84.89 Family history of other specified conditions
CPT/HCPCS: 93005 ×2; 96360; 99285; 36415; 93458; 83880; 80061; 80053; 83735; 84443; 84484; 85025 ×2; 85610 ×2; 85730 ×2; 71046; 93880; G0378 ×2; C1769 ×2; C1760; C1894; J2250; J1644 ×2; J2001; J3010; Q9967

== ENCOUNTER → 2020-03-04 | Outpatient (CLI) | payer BC ==
--- NOTE | 2020-03-04 15:17 | CT ---
EXAMINATION TYPE: CT soft tissue neck w con DATE OF EXAM: 03/04/2020 3:06 PM COMPARISON: Ultrasound 02/26/2020 HISTORY: Generalized neck swelling, patient unable to feel mass/lump. CT DLP: 497.9 mGycm Automated exposure control for dose reduction was used. CONTRAST: CT scan of the neck is performed following with IV Contrast, patient injected with 100ml mL of Isovue 300. Axial images are obtained, coronal and sagittal reformatted images are reviewed. FINDINGS: Lung apices are clear with mild apical pleural thickening. Additional areas of subpleural t hickening are noted bilaterally too small to characterize. Thyroid gland enhances normally. There is multilevel hypertrophic and degenerative changes with sever e multilevel degenerative disc disease and foraminal encroachment. Multilevel canal stenosis is suspe cted and could be correlated with MRI as clinically warranted. Airways patent. Vocal cords are symmetric. Base of the tongue is symmetric. Oropharynx and nasopharyn x are symmetric. Intraorbital and intracranial structures demonstrate no abnormality. Parotid and salivary glands have a homogeneous appearance without evidence of mass. There is scattere d shotty adenopathy throughout the soft tissues of the neck with with an area of pathologic adenopath y in the left submandibular space measuring a short axis of 1 cm. IMPRESSION: 1. Left submandibular borderline adenopathy measuring short axis of 1 cm. Is likely corresponds to th e ultrasound abnormality.
== END | disposition home or self-care (01) ==
LOC: RADCTMAIN 14:40
PROVIDERS: ATTEND Nurse Practitioner
DX: R59.9 Enlarged lymph nodes, unspecified (principal)
CPT/HCPCS: 70491; Q9967

== ENCOUNTER → 2020-03-17 | Outpatient (CLI) | payer BC ==
[2020-03-17 11:30] LABS: African American GFR (CKD) >90 (>60 ml/min/1.73 sqM); Anion Gap 3 mmol/L; Blood Urea Nitrogen 19 mg/dL (7-17); Calcium 9.5 mg/dL (8.4-10.2); Carbon Dioxide 33 mmol/L (22-30); Chloride 103 mmol/L (98-107); Glucose 86 mg/dL (74-99); Non-African American GFR(CKD) >90 (>60 ml/min/1.73 sqM); Potassium 4.7 mmol/L (3.5-5.1); Sodium 139 mmol/L (137-145)
== END | disposition home or self-care (01) ==
LOC: LABPAT 09:26
PROVIDERS: ATTEND Orthopaedic Surgery Orthopaedic Surgery of the Spine
DX: Z01.818 Encounter for other preprocedural examination (principal); G95.89 Other specified diseases of spinal cord
CPT/HCPCS: 80048; 86850; 86900; 86901

== ENCOUNTER 2020-03-26 13:02 | Day surgery (SDC) | payer BC ==
[2020-03-21 12:32] VITALS: BMI 32.1
[~2020-03-26 13:02] MED LIST: DEXAMETHASONE SOD PHOSPHATE 10 MG/ML 1 ML VIAL IV ONE; HYDROmorphone 0.5 MG/0.5 ML SYRINGE IVP PRN; LIDOCAINE 1% (10MG/ML) FOR IV START INTRADERMA PRN; ONDANSETRON 4 MG/2 ML VIAL IVP ONE; ceFAZolin 1,000 MG in SODIUM CHLORIDE 0.9% IRRIGATIO 1,000 ML IRRIGATION ONE
[2020-03-26] MEDS: LACTATED RINGERS 1,000 ML IV SCH (14:39)
[2020-03-26] MEDS ORDERED: LIDOCAINE 1% INJ 10MG/ML (20 ML MDV) ONE (16:45)
[2020-03-26] MEDS ORDERED: PROPOFOL 10 MG/ML 20 ML VIAL IV ONE (16:45)
[2020-03-26] MEDS ORDERED: MIDAZOLAM 2 MG/2 ML VIAL ONE (16:45)
[2020-03-26] MEDS ORDERED: SUCCINYLCHOLINE CHLORIDE 100 MG/5 ML SYR IV ONE (16:45)
[2020-03-26] MEDS ORDERED: fentaNYL (PF) 50 MCG/ML 2 ML AMP ONE (16:45)
[2020-03-26] MEDS ORDERED: DEXAMETHASONE SOD PHOSPHATE 10 MG/ML 1 ML VIAL ONE (16:45)
[2020-03-26] MEDS ORDERED: LIDOCAINE 2%-EPI 1:100,000 20 ML VIAL SQ ONE (17:19)
[2020-03-26] MEDS ORDERED: BUPIVACAINE (PF) 0.5% 30 ML VIAL SQ ONE (17:19)
[2020-03-26] MEDS ORDERED: GELATIN SPONGE,ABSORB (LARGE) 1 EACH SPONGE MISCELLANE ONE (17:26)
[2020-03-26] MEDS ORDERED: THROMBIN (BOVINE) 5,000 UNIT VIAL TOPICAL ONE (17:27)
[2020-03-26] MEDS ORDERED: HYDROmorphone 1 MG/ML 1 ML SYRINGE IVP PRN (19:13)
[2020-03-26] MEDS ORDERED: HYDROcodone/APAP 5-325MG 1 EACH TAB PO PRN (19:13)
[2020-03-26] MEDS ORDERED: ACETAMINOPHEN TAB 325 MG TAB PO PRN (19:13)
[2020-03-26] MEDS ORDERED: HYDROmorphone 0.5 MG/0.5 ML SYRINGE IVP PRN (19:13)
[2020-03-26] MEDS ORDERED: MAGNESIUM HYDROXIDE 2,400 MG/10 ML CUP PO PRN (19:13)
[2020-03-26] MEDS ORDERED: ONDANSETRON 4 MG/2 ML VIAL IVP PRN (19:13)
[2020-03-26] MEDS ORDERED: BENZOCAINE/MENTHOL LOZENG 1 EACH LOZENGE MUCOUS MEM PRN (19:13)
[2020-03-26] MEDS ORDERED: NITROGLYCERIN SL TABS 0.4 MG TAB SUBLINGUAL PRN (19:14)
--- NOTE | 2020-03-26 19:18 | P.OP ---
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, cervical myelopathy, cervical myelomalacia, ossification of posterior longitudinal ligament, upper extremity radiculopathy, upper extremity weakness, neck pain Postoperative Diagnosis:Severe cervical stenosis C4 5 C5 6 C6 7, 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 [employer] Helper: Jos Coles is present throughout the entire the case persistence during positioning, dissection, exposure, visualization, and all crucial elements of the case as well as closure. Anesthesia: General anesthesia Estimated blood loss: Approximately 100 mL Complications: None apparent Components implanted: K2M [place] anterior cervical plate system with screws and Vikos interbody allograft bone graft with 1 mL of DBX bone putty Disposition: To recovery room in good stable condition. OPERATIVE INDICATIONS The patient has had long-standing issues in their neck and upper extremities. She has been having significant worsening over the past year and severe worsening over the past couple of months. She has noticed radicular symptoms in her upper extremities and some weakness. Imaging showed severe cervical stenosis with herniated disc and evidence of cervical myelomalacia and myelopathy. The patient has been through conservative treatment. We discussed various treatment options including surgery, and the patient wishes to proceed with surgery We discussed the risk, patient's alternatives and benefits of surgery including but not limited to, risk of bleeding risk of infection, risk of need for further surgery, risk of decreased, loss of motion, muscle function, malunion nonunion, hardware failure, nerve damage, paralysis, heart attack, and . OPERATIVE SUMMARY After discussing all the risks, patient alternatives and benefits at length, the patient elected to proceed with surgical intervention, signed informed consent, and presented for their procedure. The patient was seen and examined in the preoperative holding area and the surgical site was marked. The patient was given antibiotics and brought to the operating room. The patient was positioned on the operating room table in a supine position being careful to pad any bony prominences and pressure points. The patient was sedated and intubated by anesthesia in standard fashion. Once the airway and C- spine were stabilized the patient's arms were padded and tucked at her side, with her shoulders gently taped. The head was placed in a donut pad with the neck in good neutral alignment and position. We were careful to maintain the patient's cervical spine and good neutral alignment and position throughout. The patient was prepped and draped in a normal standard fashion. An appropriate timeout and keystone protocol performed. We were able to proceed with the surgery. The local wound area was infiltrated with local anesthetic. An incision was made transversely approximately 2-1/2 cm over the appropriate levels at C5 6. Dissection was taken down subcutaneously to the level of the platysma which was split in line with its fibers. Dissection was taken with a carotid approach, with the trachea and esophagus medial and the carotid sheath laterally. We dissected down to the anterior surface of the vertebral bodies. Intraoperative x-ray was taken which showed a marker at the appropriate level of C4 5. With the appropriate level positively confirmed, we were able to proceed with discectomy at the appropriate levels. All of the operative levels were exposed appropriately. The patient had all their twitches back, and there was no evidence of recurrent laryngeal issue. The wound was copiously irrigated and suctioned dry as had been done periodically throughout the case. At the appropriate level/levels, I established an annulotomy with an 11 blade scalpel. A discectomy was performed with a combination of pituitary rongeurs, curettes, a high-speed bur, and Kerrison rongeurs. The posterior longitudinal ligament was significantly calcified and hardened with calcification. It felt as though there was ossification the posterior longitudinal ligament and I had to take this down and use extra thickness care to decompress the spinal cord. I was able to take this down and take down any posterior osteophytes. There are large central disc herniations particular at C4 5 and these were removed as well. This gave good central and bilateral foraminal decompression. There is no evidence of any dural tear or leak. The endplates were prepared with a high- speed bur. With the endplates in good parallel position, I was able to size for the appropriate size interbody graft. The wound was irrigated and suctioned dry the graft was prepared and malleted into position. It had good alignment and position with the anterior surface flush with the anterior surface of the vertebral bodies. This was done similarly the appropriate levels at C4 5 C5 6 and C6 7. With the grafts intact, I was able to measure and contour and appropriate sized plate. The plate was positioned at the midline over the appropriate levels at C4 5 6 and 7. Screw holes were established with a hand drill and drill guide. Screws were placed in good alignment and position with excellent bony purchase. They were seated under the locking device. The construct was checked and found to be stable. Intraoperative x-ray was taken which showed good alignment and position of the implants at the appropriate levels. There was no evidence of any dural tear or leak. Good hemostasis was maintained. The wound was copiously irrigated and suctioned dry as had been done periodically throughout the case. The platysma was closed with absorbable suture. The subcutaneous tissue was closed. The subcuticular tissue was closed with absorbable suture. The wound was cleaned and dried and dressed appropriately. A soft cervical collar was placed appropriately. The patient was woken up by anesthesia, extubated, transferred back gently to their hospital bed and brought to the recovery room in good stable condition. The patient will be admitted to the hospital for appropriate postoperative care, medical management and monitoring. We will continue to follow them closely about the postoperative course.
[2020-03-26] MEDS ORDERED: LACTATED RINGERS 1,000 ML IV ONE (19:20)
[2020-03-26] MEDS: SODIUM CHLORIDE 0.9% 1,000 ML IV SCH (21:36)
--- NOTE | 2020-03-27 05:08 | XR ---
EXAMINATION TYPE: XR cervical spine 1V DATE OF EXAM: 03/26/2020 COMPARISON: NONE HISTORY: 59-year-old female new placement TECHNIQUE: Portable crosstable lateral intraoperative view FINDINGS: Single lateral view shows patient to be intubated. A metallic needle extends to the anterior C4-C5 di sc interspace. Visualized alignment is maintained though C6/C7 and below is obscured by the patient's shoulders. IMPRESSION: Surgical needle extends to the anterior C4-C5 disc interspace.
--- NOTE | 2020-03-27 05:09 | XR ---
EXAMINATION TYPE: XR cervical spine 1V DATE OF EXAM: 03/26/2020 COMPARISON: Earlier today HISTORY: 59-year-old female post C-spine fusion TECHNIQUE: Single portable crosstable intraoperative lateral view. FINDINGS: Patient remains intubated. Interval placement of ACDF extending from C4 down to C6 level. The anterio r plate may extend even farther down to C7 but this region is obscured by the patient's shoulders. IMPRESSION: Placement of C4-C6 ACDF. The anterior plate may extend lower down to C7 but this region is obscured b y the patient's shoulders.
[2020-03-27] MEDS: LACTATED RINGERS 1,000 ML IV SCH (05:35)
[2020-03-27] MEDS ORDERED: LEVOTHYROXINE 25 MCG TAB PO SCH (06:30)
[2020-03-27] MEDS: SODIUM CHLORIDE 0.9% 1,000 ML IV SCH (07:47)
[2020-03-27 08:01] VITALS: BP 118/74; PULSE 66; RESP 16; TEMP 98.1
[2020-03-27] MEDS ORDERED: MULTIVITAMINS, THERA 1 EACH TAB PO SCH (09:00)
[2020-03-27] MEDS ORDERED: ASPIRIN 81 MG PO SCH (09:00)
[2020-03-27] MEDS ORDERED: SENNOSIDES-DOCUSATE SODIUM 1 EACH TAB PO SCH (09:00)
--- NOTE | 2020-03-27 10:24 | P.DS ---
Providers Date of admission: 03/26/2020 Attending physician: Brandon Howell Primary care physician: Sarai [facility] Course: The patient presented on the day of admission as per their operative note. She is having significant back issues with upper extremity radiculopathy and weakness. She feels her upper extremities are doing well today and have had improvement with her surgery her neck is sore but she is tolerating adequately she is tolerating her soft diet. Physical Exam The incision site is clean dry and intact. There is no erythema no drainage. There is no purulence no evidence of infection. Neck soft without any tension. Abdomen soft and nontender. Chest has good excursion with deep inspiration and expiration. The patient has active and passive range of motion intact at the upper and lower extremities. There is no acute change in neurologic status. 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 The patient has been making good progress postoperatively. She feels her upper extremities are doing well. They have completed the prophylactic antibiotics without any signs or symptoms of infection. The patient has been able to advance their diet, and is tolerating diet adequately. The pain was initially controlled with IV medications and is now controlled appropriately with oral medications. The patient has been able to increase their mobilization. The patient has progressed appropriately. I think they are in good stable condition for discharge today. They will be sent home with appropriate prescriptions. I answered their questions to the best of my ability in a language that they can understand and they are agreeable with the plan. They will follow up as directed in approximately 2 weeks or sooner if she is having any problems. Patient Condition at Discharge: Good Plan - Discharge Summary Discharge Rx Participant: Yes New Discharge Prescriptions: New HYDROcodone/APAP 5-325MG [[place] 5] 1 each PO Q6HR PRN #28 tab PRN Reason: Pain No Action Levothyroxine Sodium [Synthroid] 25 mcg PO QAM Aspirin 81 mg PO DAILY Nitroglycerin Sl Tabs [Nitrostat] 0.4 mg SUBLINGUAL Q5M PRN PRN Reason: Chest Pain Multivitamins, Thera [Multivitamin (formulary)] 1 tab PO DAILY Discharge Medication List Aspirin 81 mg PO DAILY 02/22/20 [History] Levothyroxine Sodium [Synthroid] 25 mcg PO QAM 02/22/20 [History] Multivitamins, Thera [Multivitamin (formulary)] 1 tab PO DAILY 02/26/20 [History] Nitroglycerin Sl Tabs [Nitrostat] 0.4 mg SUBLINGUAL Q5M PRN 02/26/20 [History] HYDROcodone/APAP 5-325MG [[place] 5] 1 each PO Q6HR PRN #28 tab 03/27/20 [Rx] Follow up Appointment(s)/Referral(s): Brandon Howell DO [Doctor of Osteopathic Medicine] - 2 Weeks Activity/Diet/Wound Care/Special Instructions: Keep site clean. May shower with waterproof Tegaderm intact. Do not soak in a tub. After 72 hours postoperatively, patient May remove dressing and then may shower with area uncovered. Leave Steri-Strips intact and allow them to fray off on their own. May ambulate as tolerated. Avoid heavy or rigorous activity. No repetitive bending twisting or lifting. No overhead work. Discharge Disposition: HOME SELF-CARE
== END 2020-03-27 12:33 | disposition home or self-care (01) ==
LOC: OR 13:02 → 4SSUR 19:25 → OR 03-27 12:33
PROVIDERS: ATTEND Orthopaedic Surgery Orthopaedic Surgery of the Spine
DX: M50.021 Cervical disc disorder at C4-C5 level with myelopathy (principal); M50.121 Cervical disc disorder at C4-C5 level with radiculopathy; M48.02 Spinal stenosis, cervical region; G95.89 Other specified diseases of spinal cord; E03.9 Hypothyroidism, unspecified; Z79.52 Long term (current) use of systemic steroids; Z79.890 Hormone replacement therapy; Z79.82 Long term (current) use of aspirin; Z90.711 Acquired absence of uterus with remaining cervical stump
CPT/HCPCS: 72020; 22551; 22552 ×2; 22853 ×3; 20930; 22846; C1713 ×2; C1762 ×2; J2250; J1100; J0690 ×3; J2405; J2001; J3010; J0330; J2704; 86850; 86900; 86901

== ENCOUNTER 2020-11-09 13:06 | Observation (INO) | payer BC, OTHER ==
[2020-11-09] MEDS ORDERED: LORazepam 2 MG/ML INJ IV STA (13:28)
[2020-11-09] MEDS ORDERED: SODIUM CHLORIDE 0.9% 1,000 ML IV STA (13:28)
--- NOTE | 2020-11-09 13:31 | ED ---
General Adult HPI - General Chief complaint: Syncope Stated complaint: near syncope Time Seen by Provider: 11/09/20 13:19 Source: patient, family, RN notes reviewed Mode of arrival: ambulatory Limitations: no limitations - History of Present Illness Initial comments: Patient is a pleasant [age]-year-old female presenting to the emergency Department with lightheadedness. Onset of symptoms was around 11:00. Symptoms have improved however not resolved. Symptoms had a fairly sudden onset. Patient was not exerting herself during this time. Patient suddenly felt lightheaded and tingly all over. Patient had tingling of her lips. Patient was nauseous however this resolved with Zofran by EMS. Patient did have similar symptoms approximately 8 months ago however unclear why. No chest pain or dyspnea. No weakness. No confusion. - Related Data Home Medications Medication Instructions Recorded Confirmed Aspirin 81 mg PO DAILY 02/22/20 03/26/20 Levothyroxine Sodium [Synthroid] 25 mcg PO QAM 02/22/20 03/26/20 Multivitamins, Thera [Multivitamin 1 tab PO DAILY 02/26/20 03/26/20 (formulary)] Nitroglycerin Sl Tabs [Nitrostat] 0.4 mg SUBLINGUAL Q5M PRN 02/26/20 03/26/20 Previous Rx's Medication Instructions Recorded HYDROcodone/APAP 5-325MG [[place] 5] 1 each PO Q6HR PRN #28 tab 03/27/20 Allergies Allergy/AdvReac Type Severity Reaction Status Date / Time No Known Allergies Allergy Verified 03/26/20 14:37 Review of Systems ROS Statement: Those systems with pertinent positive or pertinent negative responses have been documented in the HPI. ROS Other: All systems not noted in ROS Statement are negative. Constitutional: Denies: fever Eyes: Denies: eye pain ENT: Denies: ear pain Respiratory: Denies: cough, dyspnea Cardiovascular: Denies: chest pain Endocrine: Denies: fatigue Gastrointestinal: Reports: nausea. Denies: abdominal pain Genitourinary: Denies: dysuria Musculoskeletal: Denies: back pain Skin: Denies: rash Neurological: Reports: as per HPI. Denies: headache, weakness, confusion Past Medical History Past Medical History: No Reported History Additional Past Medical History / Comment(s): dizzy, lightheaded, SOB w/exertion, recent stress test pt unable to finish , chest tightness. History of Any Multi-Drug Resistant Organisms: None Reported Past Surgical History: Back Surgery, Hysterectomy Additional Past Surgical History / Comment(s): Spinal surgery 2019 Cervical support daya Past Anesthesia/Blood Transfusion Reactions: No Reported Reaction, Family History of Problems w/ Anesthesia Additional Past Anesthesia/Blood Transfusion Reaction / Comment(s): mom & sister slow to wake up Past Psychological History: No Psychological Hx Reported Smoking Status: Current every day smoker General Exam Limitations: no limitations General appearance: alert, in no apparent distress Head exam: Present: normocephalic Eye exam: Present: normal appearance, PERRL, EOMI. Absent: nystagmus ENT exam: Present: normal oropharynx Neck exam: Present: normal inspection Respiratory exam: Present: normal lung sounds bilaterally. Absent: chest wall tenderness Cardiovascular Exam: Present: regular rate, normal rhythm Expanded Peripheral pulses: 2+: Radial (R), Radial (L), Dorsalis Pedis (R), Dorsalis Pedis (L) GI/Abdominal exam: Present: soft. Absent: distended, tenderness, pulsatile mass Extremities exam: Present: normal inspection. Absent: pedal edema, calf tenderness Neurological exam: Present: alert, oriented X3, CN II-XII intact. Absent: motor sensory deficit Expanded Neurological exam: Present: protecting the airway Speech: Present: fluid speech Cranial nerves: EOM's Intact: Normal, Facial Sensation: Normal Sensory exam: Upper Extremity Light Touch: Normal, Lower Extremity Light Touch: Normal Motor strength exam: RUE: 5, LUE: 5, RLE: 5, LLE: 5 Eye Response: (4) open spontaneously Motor Response: (6) obeys commands Verbal Response: (5) oriented Psychiatric exam: Present: normal affect, normal mood Skin exam: Present: normal color Course Vital Signs 11/09/20 13:08 Temperature 98.2 F Pulse Rate 87 Respiratory 18 Rate Blood Pressure 149/94 O2 Sat by Pulse 99 Oximetry EKG Findings - EKG Comments: EKG Findings:: No sinus rhythm with rate of 81. RI 160. QRS 80. QT 384. QTC 446. Left axis. Q wave in 3. Nonspecific ST-T. Medical Decision Making - Medical Decision Making Patient reevaluated and still not feeling very well. Patient family updated on results. Also on plan. Case discussed with Dr. Puri, covering for Dr. mcdowell, who will admit. - Lab Data Result diagrams: 11/09/20 13:38 11/09/20 13:38 Lab Results 11/09/20 11/09/20 11/09/20 Range/Units 13:38 13:38 13:38 WBC 11.2 H (3.8-10.6) k/uL RBC 4.55 (3.80-5.40) m/uL Hgb 14.4 (11.4-16.0) gm/dL Hct 43.5 (34.0-46.0) % MCV 95.5 (80.0-100.0) fL MCH 31.7 (25.0-35.0) pg MCHC 33.1 (31.0-37.0) g/dL RDW 12.9 (11.5-15.5) % Plt Count 296 (150-450) k/uL MPV 7.4 Neutrophils % 83 % Lymphocytes % 11 % Monocytes % 4 % Eosinophils % 1 % Basophils % 0 % Neutrophils # 9.3 H (1.3-7.7) k/uL Lymphocytes # 1.3 (1.0-4.8) k/uL Monocytes # 0.5 (0-1.0) k/uL Eosinophils # 0.1 (0-0.7) k/uL Basophils # 0.0 (0-0.2) k/uL PT 10.8 (9.0-12.0) sec INR 1.0 (<1.2) APTT 23.3 (22.0-30.0) sec D-Dimer 0.33 (<0.60) mg/L FEU Sodium (137-145) mmol/L Potassium (3.5-5.1) mmol/L Chloride (98-107) mmol/L Carbon Dioxide (22-30) mmol/L Anion Gap mmol/L BUN (7-17) mg/dL Creatinine (0.52-1.04) mg/dL Est GFR (CKD-EPI)AfAm (>60 ml/min/1.73 sqM) Est GFR (CKD-EPI)NonAf (>60 ml/min/1.73 sqM) Glucose (74-99) mg/dL Calcium (8.4-10.2) mg/dL Magnesium (1.6-2.3) mg/dL Total Bilirubin (0.2-1.3) mg/dL AST (14-36) U/L ALT (4-34) U/L Alkaline Phosphatase (38-126) U/L Troponin I (0.000-0.034) ng/mL Total Protein (6.3-8.2) g/dL Albumin (3.5-5.0) g/dL Urine Color Colorless Urine Appearance Clear (Clear) Urine pH 6.0 (5.0-8.0) Ur Specific [place] 1.002 (1.001-1.035) Urine Protein Negative (Negative) Urine Glucose (UA) Negative (Negative) Urine Ketones Negative (Negative) Urine Blood Trace H (Negative) Urine Nitrite Negative (Negative) Urine Bilirubin Negative (Negative) Urine Urobilinogen <2.0 (<2.0) mg/dL Ur Leukocyte Esterase Negative (Negative) Urine RBC <1 (0-5) /hpf Urine WBC <1 (0-5) /hpf 11/09/20 11/09/20 Range/Units 13:38 13:38 WBC (3.8-10.6) k/uL RBC (3.80-5.40) m/uL Hgb (11.4-16.0) gm/dL Hct (34.0-46.0) % MCV (80.0-100.0) fL MCH (25.0-35.0) pg MCHC (31.0-37.0) g/dL RDW (11.5-15.5) % Plt Count (150-450) k/uL MPV Neutrophils % % Lymphocytes % % Monocytes % % Eosinophils % % Basophils % % Neutrophils # (1.3-7.7) k/uL Lymphocytes # (1.0-4.8) k/uL Monocytes # (0-1.0) k/uL Eosinophils # (0-0.7) k/uL Basophils # (0-0.2) k/uL PT (9.0-12.0) sec INR (<1.2) APTT (22.0-30.0) sec D-Dimer (<0.60) mg/L FEU Sodium 141 (137-145) mmol/L Potassium 4.2 (3.5-5.1) mmol/L Chloride 108 H (98-107) mmol/L Carbon Dioxide 27 (22-30) mmol/L Anion Gap 6 mmol/L BUN 11 (7-17) mg/dL Creatinine 0.60 (0.52-1.04) mg/dL Est GFR (CKD-EPI)AfAm >90 (>60 ml/min/1.73 sqM) Est GFR (CKD-EPI)NonAf >90 (>60 ml/min/1.73 sqM) Glucose 121 H (74-99) mg/dL Calcium 9.0 (8.4-10.2) mg/dL Magnesium 2.0 (1.6-2.3) mg/dL Total Bilirubin 0.5 (0.2-1.3) mg/dL AST 27 (14-36) U/L ALT 16 (4-34) U/L Alkaline Phosphatase 73 (38-126) U/L Troponin I 0.013 (0.000-0.034) ng/mL Total Protein 7.3 (6.3-8.2) g/dL Albumin 4.5 (3.5-5.0) g/dL Urine Color Urine Appearance (Clear) Urine pH (5.0-8.0) Ur Specific [place] (1.001-1.035) Urine Protein (Negative) Urine Glucose (UA) (Negative) Urine Ketones (Negative) Urine Blood (Negative) Urine Nitrite (Negative) Urine Bilirubin (Negative) Urine Urobilinogen (<2.0) mg/dL Ur Leukocyte Esterase (Negative) Urine RBC (0-5) /hpf Urine WBC (0-5) /hpf - Radiology Data Radiology results: report reviewed (Computed tomography scan of the brain shows negative exam.), image reviewed (Chest x-ray shows no process) Disposition Clinical Impression: Near syncope Disposition: ADMITTED IP TO THIS HOSP Is patient prescribed a controlled substance at d/c from ED?: No Referrals: Sarai Duarte MD [Primary Care Provider] - 1-2 days Decision Time: 15:19
[2020-11-09 13:56] LABS: Basophils % (A) 0 %; Eosinophils # (A) 0.1 k/uL (0-0.7); Eosinophils % (A) 1 %; HCT 43.5 % (34.0-46.0); HGB 14.4 gm/dL (11.4-16.0); Lymphocytes # (A) 1.3 k/uL (1.0-4.8); Lymphocytes % (A) 11 %; MCH 31.7 pg (25.0-35.0); MCHC 33.1 g/dL (31.0-37.0); MCV 95.5 fL (80.0-100.0); Mean Platelet Volume 7.4; Monocytes # (A) 0.5 k/uL (0-1.0); Monocytes % (A) 4 %; Neutrophils # (A) 9.3 k/uL (1.3-7.7); Neutrophils % (A) 83 %; Platelet Count 296 k/uL (150-450); RBC 4.55 m/uL (3.80-5.40); RDW 12.9 % (11.5-15.5); WBC 11.2 k/uL (3.8-10.6)
[2020-11-09 13:58] LABS: Appearance,Urine Clear (Clear); Bilirubin,Urine Negative (Negative); Blood,Urine Trace (Negative); Color,Urine Colorless; Glucose,Urine (UA) Negative (Negative); Ketones,Urine Negative (Negative); Leukocyte Esterase,Urine Negative (Negative); Nitrite,Urine Negative (Negative); Protein,Urine Negative (Negative); RBC,Urine <1 /hpf (0-5); Specific Gravity,Urine 1.002 (1.001-1.035); Urobilinogen,Urine <2.0 mg/dL (<2.0); WBC,Urine <1 /hpf (0-5)
[2020-11-09 14:10] LABS: Potassium 4.2 mmol/L (3.5-5.1)
[2020-11-09 14:11] LABS: ALT 16 U/L (4-34); AST 27 U/L (14-36); African American GFR (CKD) >90 (>60 ml/min/1.73 sqM); Albumin 4.5 g/dL (3.5-5.0); Alkaline Phosphatase 73 U/L (38-126); Anion Gap 6 mmol/L; Blood Urea Nitrogen 11 mg/dL (7-17); Carbon Dioxide 27 mmol/L (22-30); Chloride 108 mmol/L (98-107); Glucose 121 mg/dL (74-99); Non-African American GFR(CKD) >90 (>60 ml/min/1.73 sqM); Sodium 141 mmol/L (137-145); Total Bilirubin 0.5 mg/dL (0.2-1.3); Total Protein 7.3 g/dL (6.3-8.2)
--- NOTE | 2020-11-09 14:17 | XR ---
EXAMINATION TYPE: XR chest 2V DATE OF EXAM: 11/09/2020 COMPARISON: 02/26/2020 HISTORY: Syncope TECHNIQUE: FINDINGS: Heart and mediastinum are normal. Lungs are clear. Diaphragm is normal. There are chest james ds. Bony thorax is intact. There is cervical spine fusion surgery noted. IMPRESSION: Normal chest. No change.
[2020-11-09 14:24] LABS: D-Dimer 0.33 mg/L FEU (<0.60); Partial Thromboplastin Time 23.3 sec (22.0-30.0); Prothrombin Time 10.8 sec (9.0-12.0)
--- NOTE | 2020-11-09 14:25 | CT ---
EXAMINATION TYPE: CT brain wo con DATE OF EXAM: 11/09/2020 COMPARISON: None HISTORY: syncope CT DLP: 1031.4 mGycm Automated exposure control for dose reduction was used. There is mild cerebral atrophy. There is no mass effect nor midline shift. There is no sign of intrac ranial hemorrhage. Calvarium is intact. There is no evidence of cerebral edema. IMPRESSION: Negative unenhanced head CT scan.
[2020-11-09] MEDS ORDERED: NALOXONE 0.4 MG/ML 1 ML VIAL IV PRN (15:21)
[2020-11-09] MEDS: SODIUM CHLORIDE 0.9% 1,000 ML IV SCH (15:27)
[2020-11-09] MEDS ORDERED: HEPARIN SODIUM 1,000 UN/ML (10ML VL) IV PRN (19:14)
[2020-11-09] MEDS ORDERED: HEPARIN SODIUM 1,000 UN/ML (10ML VL) IV ONE (19:14)
[2020-11-09] MEDS ORDERED: HEPARIN SOD,PORK IN 0.45% NACL 25,000 UNIT in 0.45% NACL 1 250ML.BAG IV SCH (19:15)
[2020-11-10 01:58] LABS: Basophils # (A) 0.1 k/uL (0-0.2); Basophils % (A) 1 %; Eosinophils # (A) 0.1 k/uL (0-0.7); Eosinophils % (A) 2 %; HCT 37.8 % (34.0-46.0); HGB 12.9 gm/dL (11.4-16.0); Lymphocytes # (A) 1.8 k/uL (1.0-4.8); Lymphocytes % (A) 34 %; MCH 32.4 pg (25.0-35.0); MCHC 34.1 g/dL (31.0-37.0); Mean Platelet Volume 7.4; Monocytes # (A) 0.3 k/uL (0-1.0); Monocytes % (A) 6 %; Neutrophils # (A) 2.9 k/uL (1.3-7.7); Neutrophils % (A) 55 %; Platelet Count 252 k/uL (150-450); RBC 3.98 m/uL (3.80-5.40); RDW 12.9 % (11.5-15.5); WBC 5.2 k/uL (3.8-10.6)
[2020-11-10 02:05] LABS: Prothrombin Time 10.7 sec (9.0-12.0)
[2020-11-10] MEDS: SODIUM CHLORIDE 0.9% 1,000 ML IV SCH ×2 (02:26→19:05)
[2020-11-10] MEDS: LEVOTHYROXINE 25 MCG TAB PO SCH (05:23)
[2020-11-10 07:23] VITALS: RESP 16
[2020-11-10] MEDS: HEPARIN SODIUM,PORCINE/PF 5,000 UNIT/0.5 ML SYRINGE SQ SCH ×2 (09:30→21:07)
--- NOTE | 2020-11-10 10:01 | CONS ---
CONSULTATION HISTORY OF PRESENT ILLNESS: Belle Mcgill is a lady who a came into the emergency room with very nondescript complaints of just feeling dizzy and a fluttering sensation in the chest. She did not really have a krissy syncope. She said she felt lightheaded and symptoms came on suddenly, then she felt tingly all over and came into the hospital. However, she did not have an actual syncope. There is no arrhythmia that we can see on the campus monitor. She appears to be in sinus rhythm. She currently takes aspirin and Synthroid for hypothyroidism. She does not have any obstructive CAD. She underwent a cardiac catheterization performed by Dr. Lemon because of an abnormal echo in February 2020, which revealed a right-dominant system. No obstructive CAD. She has history of cervical spine surgery in the past. She is resting comfortably without symptoms at the time of my evaluation. However, on questioning, she indicates to me that she has been having episodes of lightheadedness and palpitations on and off for the last 1-2 weeks. She also complained of some sharp burning discomfort in the chest that was quite transient. At the time of my evaluation, she is reasonably comfortable. PAST MEDICAL HISTORY: 1. Unremarkable cardiac cath for atypical chest pain and abnormal echo. 2. Hypothyroidism. 3. No documented evidence of hypertension, diabetes, myocardial infarction or CVA. MEDICATIONS: Medications at home include: Levothyroxine, multivitamins, and aspirin 81 mg daily. EXAMINATION: Vital signs are stable. Blood pressure is 140/70, pulse rate is 64 per minute regular. HEENT unremarkable. Fundus was not examined by me. Neck is supple. There is no JVD. I do not hear a carotid bruit. There is no thyromegaly. HEART exam reveals S1, S2 heard normally. No significant murmurs. LUNGS revealed bilateral decent air entry. Abdomen is soft, nontender. Lower extremities reveal normal pulses. No edema. Central nervous system grossly within normal limits. EKG revealed sinus mechanism, no acute changes. LAB DATA: Reveals that her troponins are 0.05 and 0.04 and 0.03. The troponin profile does not suggest any myocardial injury. IMPRESSION: 1. Episode of dizziness with palpitations. 2. Atypical chest pain. 3. Troponin profile does not suggest myocardial injury. RECOMMENDATIONS: I am recommending that we will continue telemetry. Do a 30 day event monitor upon discharge. Check a carotid Doppler, echocardiogram. Switch her from IV to subcu heparin and based on clinical course, further recommendations. Thank you very much for the consult. MMMELVINL / IJN: [id number] /
[2020-11-10 10:21] LABS: Albumin 3.7 g/dL (3.80-4.90); Albumin/Globulin Ratio 1.68 (1.60-3.17); Anion Gap 6.9 mmol/L (4.00-12.00); BUN/Creat Ratio 21.67 Ratio (12.00-20.00); Calcium 8.3 mg/dL (8.7-10.3); Carbon Dioxide 25.1 mmol/L (21.6-31.8); Globulin 2.2 g/dL (1.6-3.3); Non-African American GFR(CKD) 98.4 (60.0-200.0); Potassium 4.4 mmol/L (3.5-5.5); Total Bilirubin 0.7 mg/dL (0.2-1.2); Total Protein 5.9 g/dL (6.2-8.2)
--- NOTE | 2020-11-10 13:10 | P.HPIM ---
History of Present Illness H&P Date: 11/10/20 Marina Mcgill, is a 60-year-old female who presented to [facility] emergency room with a chief complaint of dizziness and near syncope. Patient stated that around 11 in the morning on 11/09/2020 she started feeling dizzy and lightheaded and unsteady with her gait, she was able to sit down and did not fall or lose consciousness, however her symptoms continue to worsen and she decided to come to emergency room. She was evaluated in the emergency room vital examination on presentation revealed a temperature of 98.2 pulse 87 respiration 18 and blood pressure 149/94 pulse ox 99% on room air. Laboratory data revealed a white blood count of 11.2 hemoglobin 14.4 platelet count 296 d- dimer was normal at 0.33 troponin was slightly elevated at 0.04 urine analysis did not reveal any evidence of infection COVID-19 PCR testing was negative. Chest x-ray done in the emergency room revealed normal chest. EKG done in the emergency room revealed normal sinus rhythm with nonspecific ST and T-wave abnormality. Computed tomography scan of the brain without contrast was negative. Patient was admitted to telemetry floor for further evaluation and treatment cardiology consultation was requested. Past Medical History Past Medical History: No Reported History Additional Past Medical History / Comment(s): dizzy, lightheaded, SOB w/exertion, recent stress test pt unable to finish , chest tightness. History of Any Multi-Drug Resistant Organisms: None Reported Past Surgical History: Back Surgery, Hysterectomy Additional Past Surgical History / Comment(s): Spinal surgery 2019 Cervical support daya Past Anesthesia/Blood Transfusion Reactions: No Reported Reaction, Family History of Problems w/ Anesthesia Additional Past Anesthesia/Blood Transfusion Reaction / Comment(s): mom & sister slow to wake up Past Psychological History: No Psychological Hx Reported Smoking Status: Former smoker Past Alcohol Use History: Occasional Additional Past Alcohol Use History / Comment(s): 1/2ppd or less off & on for 30 yrs. Stoped smoking 2019 Past Drug Use History: None Reported Medications and Allergies Home Medications Medication Instructions Recorded Confirmed Type Levothyroxine Sodium [Synthroid] 25 mcg PO DAILY 02/22/20 11/09/20 History Allergies Allergy/AdvReac Type Severity Reaction Status Date / Time No Known Allergies Allergy Verified 11/09/20 15:37 Physical Exam Vitals: Vital Signs Temp Pulse Pulse Resp BP BP Pulse Ox 11/10/20 07:10 98.0 F 61 16 141/84 97 11/10/20 02:00 98.1 F 69 17 109/65 98 11/09/20 19:43 98.0 F 72 17 104/65 98 11/09/20 16:36 97.9 F 73 18 131/80 100 11/09/20 16:07 74 18 121/91 98 11/09/20 13:08 98.2 F 87 18 149/94 99 Intake and Output 11/09/20 11/10/20 11/10/20 22:59 06:59 14:59 Intake Total 250 66.153 Balance 250 66.153 Intake: Intake, IV Titration 66.153 Amount Heparin Sod,Pork in 0.45% 66.153 NaCl 25,000 unit In 0.45 % NaCl 1 250ml.bag @ 11. 85 UNITS/KG/HR 9.998 mls/ hr IV .Q24H [facility] Rx#: [id number] Oral 250 Other: Voiding Method Toilet Toilet Toilet # Voids 2 1 Weight 84.368 kg In general patient is alert and oriented ?-3 in no distress HEENT head normocephalic and atraumatic Neck is supple no JVD no goiter no lymphadenopathy no carotid bruit Chest examination is clear to auscultation no crackles no wheezing Cardiac exam reveals regular heart sounds S1 and S2 no gallops no murmurs Abdomen is soft nontender no organomegaly with normal bowel sounds Extremity exam reveals no edema no cyanosis or clubbing Neurological examination reveals no gross focal deficits Results CBC & Chem 7: 11/10/20 01:33 11/10/20 05:30 Labs: Abnormal Lab Results - Last 24 Hours (Table) 11/09/20 11/09/20 11/09/20 Range/Units 13:38 13:38 13:38 WBC 11.2 H (3.8-10.6) k/uL Neutrophils # 9.3 H (1.3-7.7) k/uL APTT (22.0-30.0) sec Chloride 108 H (98-107) mmol/L BUN/Creatinine Ratio (12.00-20.00) Ratio Glucose 121 H (74-99) mg/dL Calcium (8.7-10.3) mg/dL Troponin I (0.000-0.034) ng/mL Total Protein (6.2-8.2) g/dL Albumin (3.80-4.90) g/dL Urine Blood Trace H (Negative) 11/09/20 11/09/20 11/10/20 Range/Units 17:47 21:00 01:33 WBC (3.8-10.6) k/uL Neutrophils # (1.3-7.7) k/uL APTT (22.0-30.0) sec Chloride (98-107) mmol/L BUN/Creatinine Ratio (12.00-20.00) Ratio Glucose (74-99) mg/dL Calcium (8.7-10.3) mg/dL Troponin I 0.050 H* 0.040 H* 0.038 H* (0.000-0.034) ng/mL Total Protein (6.2-8.2) g/dL Albumin (3.80-4.90) g/dL Urine Blood (Negative) 11/10/20 11/10/20 11/10/20 Range/Units 01:33 05:30 05:30 WBC (3.8-10.6) k/uL Neutrophils # (1.3-7.7) k/uL APTT 31.8 H 109.4 H* (22.0-30.0) sec Chloride (98-107) mmol/L BUN/Creatinine Ratio 21.67 H (12.00-20.00) Ratio Glucose (74-99) mg/dL Calcium 8.3 L (8.7-10.3) mg/dL Troponin I (0.000-0.034) ng/mL Total Protein 5.9 L (6.2-8.2) g/dL Albumin 3.70 L (3.80-4.90) g/dL Urine Blood (Negative) Thrombosis Risk Factor Assmnt - Choose All That Apply Any of the Below Risk Factors Present?: Yes Each Factor Represents 1 point: Obesity (BMI >25) Other Risk Factors: Yes Each Risk Factor Represents 2 Points: Age 61-74 years Thrombosis Risk Factor Assessment Total Risk Factor Score: 3 Thrombosis Risk Factor Assessment Level: Moderate Risk Assessment and Plan Plan: Episode of dizziness and near syncope, lasting about 6 hours, resolved in the emergency room Slightly elevated troponin levels, patient was started on IV heparin in the emergency room cardiology consultation was requested Underlying history of hypothyroidism with previous history of radioactive iodine treatment patient is maintained on Synthroid 25 g daily Will check TSH and free T4 Tobacco abuse patient was counseled in length to quit smoking counseling more than 5 minutes today Underlying history of cervical spine degenerative disc disease At this time patient is admitted to telemetry floor She was started on IV heparin in the emergency room Echocardiogram and carotid Doppler were ordered Cardiology consultation was requested Will follow closely
[2020-11-11] MEDS: LEVOTHYROXINE 25 MCG TAB PO SCH (05:44)
[2020-11-11] MEDS: SODIUM CHLORIDE 0.9% 1,000 ML IV SCH (05:46)
[2020-11-11] MEDS: HEPARIN SODIUM,PORCINE/PF 5,000 UNIT/0.5 ML SYRINGE SQ SCH (09:16)
--- NOTE | 2020-11-11 09:24 | US ---
EXAMINATION TYPE: US carotid duplex BILAT DATE OF EXAM: 11/11/2020 COMPARISON: 02/26/2020 CLINICAL HISTORY: dizziness. EXAM MEASUREMENTS: RIGHT: Peak Systolic Velocity (PSV) cm/sec ----- Right CCA: 52.9 ----- Right ICA: 83.9 ----- Right ECA: 54.1 ICA/CCA ratio: 1.6 RIGHT: End Diastole cm/sec ----- Right CCA: 11.9 ----- Right ICA: 40.6 ----- Right ECA: 54.1 LEFT: Peak Systolic Velocity (PSV) cm/sec ----- Left CCA: 48.5 ----- Left ICA: 76.5 ----- Left ECA: 52.0 ICA/CCA ratio: 1.6 LEFT: End Diastole cm/sec ----- Left CCA: 20.6 ----- Left ICA: 40.2 ----- Left ECA: 9.9 VERTEBRALS (direction of flow): Right Vertebral: Antegrade Left Vertebral: Antegrade Rhythm: Normal There is mild atherosclerotic plaque at the right common carotid artery bifurcation and proximal inte rnal carotid artery. There is mild atherosclerotic plaque at the left common carotid artery bifurcati on and proximal internal carotid artery. IMPRESSION: 1. No hemodynamically significant stenosis. Less than 50% % stenosis of the bilateral internal caroti d arteries. Mild bilateral atherosclerotic plaque of the common carotid arteries bilateral internal c arotid arteries. Criteria for Assigning % of Stenosis / Diameter reduction (Estimation based on the indirect measurements of the internal carotid artery velocities (ICA PSV). 1. Normal (no stenosis)=ICA PSV < 125 cm/s: ratio < 2.0: ICA EDV<40 cm/s. 2. Less than 50% stenosis=ICA PSV < 125 cm/s: ratio < 2.0: ICA EDV<40 cm/s. 3. 50 to 69% stenosis=ICA PSV of 125 to 230 cm/s: ration 2.0 ? 4.0: ICA EDV 40-100 cm/s. 4. Greater than 70% stenosis to near occlusion= ICA PSV > 230 cm/s: ratio > 4.0: ICA EDV > 100 cm/s. 5. Near occlusion= ICA PSV velocities may be low or undetectable: variable ratio and ICA EDV. 6. Total occlusion=unable to detect flow.
[2020-11-11 10:16] LABS: Basophils # (A) 0.04 X 10*3/uL (0.00-0.10); Basophils % (A) 0.8 %; HCT 41.6 % (37.2-46.3); Lymphocytes # (A) 1.52 X 10*3/uL (0.90-5.00); Lymphocytes % (A) 31.1 %; MCH 30.7 pg (27.0-32.0); MCHC 31.3 g/dL (32.0-37.0); MCV 98.3 fL (80.0-97.0); Mean Platelet Volume 10.2 fL (9.5-12.2); Monocytes # (A) 0.44 X 10*3/uL (0.20-1.00); Neutrophils # (A) 2.77 X 10*3/uL (1.80-7.70); Neutrophils % (A) 56.7 %; Platelet Count 255 X 10*3/uL (140-440); RBC 4.23 X 10*6/uL (4.10-5.20); RDW 13.2 % (11.5-14.5); WBC 4.89 X 10*3/uL (4.50-10.00)
[2020-11-11 10:42] LABS: Albumin/Globulin Ratio 1.82 (1.60-3.17); Anion Gap 6.5 mmol/L (4.00-12.00); BUN/Creat Ratio 23.33 Ratio (12.00-20.00); Carbon Dioxide 27.5 mmol/L (21.6-31.8); Globulin 2.2 g/dL (1.6-3.3); Non-African American GFR(CKD) 98.4 (60.0-200.0); Potassium 4.7 mmol/L (3.5-5.5); Total Bilirubin 0.4 mg/dL (0.3-1.2); Total Protein 6.2 g/dL (6.2-8.2)
--- NOTE | 2020-11-11 11:40 | ECHOF ---
Referral Reason:syncope MEASUREMENTS -------- HEIGHT: 162.6 cm WEIGHT: 84.4 kg BP: 144/75 RVIDd: 3.4 cm (< 3.3) IVSd: 1.2 cm (0.6 - 1.1) LVIDd: 4.9 cm (3.9 - 5.3) LVPWd: 1.2 cm (0.6 - 1.1) IVSs: 1.6 cm LVIDs: 3.7 cm LVPWs: 1.8 cm LAESV Index (A-L): 30.67 ml/m Ao Diam: 3.6 cm (2.0 - 3.7) AV Cusp: 2.6 cm (1.5 - 2.6) LA Diam: 3.6 cm (2.7 - 3.8) MV EXCURSION: 20.180 mm (> 18.000) MV EF SLOPE: 113 mm/s (70 - 150) EPSS: 1.3 cm MV E Robert: 0.43 m/s MV DecT: 353 ms MV A Robert: 0.67 m/s MV E/A Ratio: 0.64 RAP: 5.00 mmHg RVSP: 16.33 mmHg FINDINGS -------- This was a technically adequate study. The left ventricular size is normal. There is mild concentric left ventricular hypertrophy. Overa ll left ventricular systolic function is mildly impaired with, an EF between 45 - 50 %. The right ventricle is mildly enlarged. LA is midly dilated 29-33ml/m2. The right atrial size is normal. Interatrial and interventricular septum intact. The aortic valve is trileaflet and appears structurally normal. There is no evidence of aortic regu rgitation. There is no evidence of aortic stenosis. There is trace mitral regurgitation. Mild tricuspid regurgitation present. There is no evidence of pulmonary hypertension. The right v entricular systolic pressure, as measured by Doppler, is 16.33mmHg. Trace/mild (physiologic) pulmonic regurgitation. The aortic root size is normal. Normal inferior vena cava with normal inspiratory collapse consistent with estimated right atrial pre ssure of 5 mmHg. There is no pericardial effusion. CONCLUSIONS -------- 1. The left ventricular size is normal. 2. There is mild concentric left ventricular hypertrophy. 3. Overall left ventricular systolic function is mildly impaired with, an EF between 45 - 50 %. 4. The right ventricle is mildly enlarged. 5. LA is midly dilated 29-33ml/m2. 6. There is trace mitral regurgitation. 7. Mild tricuspid regurgitation present. 8. Trace/mild (physiologic) pulmonic regurgitation. BOOK SORTER: Liz Hoyos RDCS
--- NOTE | 2020-11-11 13:36 | P.PN ---
Subjective This is a pleasantly confused 60-year-old female past medical history significant for hypothyroidism. She is seen and examined sitting up in bed in no acute distress. She denies chest pain, shortness of breath, dizziness or palpitations. Blood pressure 135/81 heart rate 68 afebrile maintaining oxygen saturation on room air. Telemetry tracings reveal persistent sinus mechanism with no significant pauses or arrhythmia. Laboratory data reviewed, WBC 4.8, hemoglobin 13, platelets 255, sodium 142, potassium 4.7 and creatinine 0.6. GENERAL: Well-appearing, well-nourished and in no acute distress. NECK: Supple without JVD or thyromegaly. LUNGS: Breath sounds clear to auscultation bilaterally. Respiration equal and unlabored. No wheezes, rales or rhonchi. HEART: Regular rate and rhythm without murmurs, rubs or gallops. S1 and S2 heard. EXTREMITIES: Normal range of motion, no edema. No clubbing or cyanosis. Peripheral pulses intact. ASSESSMENT Dizziness with palpitations Atypical chest pain Flat troponin leak not suggestive of myocardial injury PLAN Echocardiogram has been obtained and will be reviewed. Apply 30 day event monitor upon discharge. Follow-up in the office with Dr. Kelly. Nurse Practitioner note has been reviewed, I agree with a documented findings and plan of care. Patient was seen and examined. Objective - Vital Signs Vital signs: Vital Signs Temp 97.7 F 11/11/20 07:15 Pulse 60 11/11/20 07:15 Resp 16 11/11/20 07:15 BP 135/81 11/11/20 07:15 Pulse Ox 97 11/11/20 07:15 Intake & Output 11/10/20 11/11/20 11/11/20 18:59 06:59 18:59 Intake Total 1245 188 Balance 1245 188 Intake: Intake, IV Titration 525 Amount Sodium Chloride 0.9% 1, 525 000 ml @ 75 mls/hr IV . [id number] STA Rx#:[id number] Oral 720 188 Other: Voiding Method Toilet Toilet Toilet # Voids 2 1 - Labs CBC & Chem 7: 11/11/20 05:19 11/11/20 05:19 Labs: Abnormal Lab Results - Last 24 Hours (Table) 11/10/20 11/11/20 11/11/20 Range/Units 05:30 05:19 05:19 MCV 98.3 H (80.0-97.0) fL MCHC 31.3 L (32.0-37.0) g/dL BUN/Creatinine Ratio 23.33 H (12.00-20.00) Ratio TSH 8.380 H (0.350-5.500) uIU/mL
[2020-11-11 14:43] VITALS: BP 107/74; PULSE 61; TEMP 97.9
--- NOTE | 2020-11-14 11:34 | P.DS ---
Providers Date of admission: 11/09/20 15:21 Expected date of discharge: 11/11/20 Attending physician: Anastasia Puri Consults: 11/09/20 15:22 Consult Physician Routine Consulting Provider: Vic Kelly Consult Reason/Comments: near syncope Do you want consulting provider notified?: Yes Primary care physician: Sarai Duarte [facility] Course: Diagnosis on discharge: Episode of dizziness and near syncope, lasting about 6 hours, resolved in the emergency room Slightly elevated troponin levels, patient was started on IV heparin in the emergency room cardiology consultation was requested Underlying history of hypothyroidism with previous history of radioactive iodine treatment patient is maintained on Synthroid 25 g daily Will check TSH and free T4 Tobacco abuse patient was counseled in length to quit smoking counseling more than 5 minutes today Underlying history of cervical spine degenerative disc disease Hospital course: Marina Mcgill, is a 60-year-old female who presented to [facility] emergency room with a chief complaint of dizziness and near syncope. Patient stated that around 11 in the morning on 11/09/2020 she started feeling dizzy and lightheaded and unsteady with her gait, she was able to sit down and did not fall or lose consciousness, however her symptoms continue to worsen and she decided to come to emergency room. She was evaluated in the emergency room vital examination on presentation revealed a temperature of 98.2 pulse 87 respiration 18 and blood pressure 149/94 pulse ox 99% on room air. Laboratory data revealed a white blood count of 11.2 hemoglobin 14.4 platelet count 296 d- dimer was normal at 0.33 troponin was slightly elevated at 0.04 urine analysis did not reveal any evidence of infection COVID-19 PCR testing was negative. Chest x-ray done in the emergency room revealed normal chest. EKG done in the emergency room revealed normal sinus rhythm with nonspecific ST and T-wave abnormality. Computed tomography scan of the brain without contrast was negative. Patient was admitted to telemetry floor for further evaluation and treatment cardiology consultation was requested. On 11/11/2020 patient has been cleared for discharge from cardiology services. Carotid Doppler negative. 30 day event monitor ordered per cardiology. Synthroid increased to 50 mics upon discharge. Patient to follow-up with PCP for further management Plan - Discharge Summary Discharge Rx Participant: No New Discharge Prescriptions: New Levothyroxine Sodium [Synthroid] 50 mcg PO DAILY 30 Days #30 tab Discontinued Levothyroxine Sodium [Synthroid] 25 mcg PO DAILY Discharge Medication List Levothyroxine Sodium [Synthroid] 50 mcg PO DAILY 30 Days #30 tab 11/11/20 [Rx] Follow up Appointment(s)/Referral(s): Sarai Duarte MD [Primary Care Provider] - 11/18/20 11:15 am Elver Lemon MD [STAFF PHYSICIAN] - 12/23/20 10:45 am (Appointment at the main office.) Patient Instructions/Handouts: Near Syncope (DC)
== END 2020-11-11 16:44 ==
LOC: EC 13:06 → INTOOBSV 15:21 → 6NMEDSUR 15:21
PROVIDERS: ADMIT Internal Medicine; ATTEND Internal Medicine
DX: R55 Syncope and collapse (principal); R79.89 Other specified abnormal findings of blood chemistry; R42 Dizziness and giddiness; R00.2 Palpitations; R07.89 Other chest pain; R20.2 Paresthesia of skin; R11.0 Nausea; E03.9 Hypothyroidism, unspecified; M50.30 Other cervical disc degeneration, unspecified cervical region; F17.210 Nicotine dependence, cigarettes, uncomplicated; E66.9 Obesity, unspecified; Z68.31 Body mass index [BMI] 31.0-31.9, adult; R41.0 Disorientation, unspecified; Z20.822 Contact with and (suspected) exposure to COVID-19; Z79.82 Long term (current) use of aspirin; Z79.890 Hormone replacement therapy; Z90.710 Acquired absence of both cervix and uterus; Z86.79 Personal history of other diseases of the circulatory system; Z98.1 Arthrodesis status; Z84.89 Family history of other specified conditions
CPT/HCPCS: 96376; 96361 ×2; 96365; 96366 ×2; 96372 ×2; 93005 ×2; 96375; 99285; 36415; 93306; 93270; 85379; 84439; 80053 ×3; 84443; 83735; 84484 ×2; 85025 ×3; 85610 ×2; 85730 ×2; 81001; 87635; 71046; 93880; 70450; G0378 ×3; J2060; J1644 ×4

== ENCOUNTER → 2020-11-24 | Outpatient (CLI) | payer BC, OTHER ==
--- NOTE | 2020-11-28 11:24 | MM ---
Reason for exam: screening (asymptomatic). Last mammogram was performed 5 years and 8 months ago. History: Patient is postmenopausal. Family history of breast cancer in mother at age 56. Physical Findings: A clinical breast exam by your physician is recommended on an annual basis and results should be correlated with mammographic findings. MG Screening Mammo w CAD Bilateral CC and MLO view(s) were taken. Prior study comparison: March 14, 2015, mammogram, performed at [facility]. October 31, 2013, mammogram, performed at [facility]. There are scattered fibroglandular densities. ASSESSMENT: Negative, BI-RAD 1 RECOMMENDATION: Routine screening mammogram of both breasts in 1 year.
== END | disposition home or self-care (01) ==
LOC: RADMAMWWP 13:27
PROVIDERS: ATTEND Family Medicine
DX: Z12.31 Encounter for screening mammogram for malignant neoplasm of breast (principal); Z78.0 Asymptomatic menopausal state; Z80.3 Family history of malignant neoplasm of breast
CPT/HCPCS: 77067

== ENCOUNTER → 2022-07-13 | Outpatient (CLI) | payer BC, OTHER ==
--- NOTE | 2022-07-13 09:07 | BD ---
EXAMINATION TYPE: Axial Bone Density DATE OF EXAM: 07/13/2022 COMPARISON: BASELINE CLINICAL HISTORY: 62 years old Female. ICD-10 CODE: V8281 , [id number], [id number], [id number] Height: 64 Weight: 200 FRAX RISK QUESTIONS: Family History (Parent hip fracture): NO History of Fracture in Adulthood: NO Secondary Osteoporosis: NO Rheumatoid Arthritis: NO RISK FACTORS HISTORY OF: Surgery to Spine YES C-SPINE When: 2019 Family History of Osteoporosis: NO Active: YES Diet low in dairy products/other sources of calcium: YES Postmenopausal woman: YES Lost more than 2 inches in height since high school: NO Frequent falls: NO Poor Health: NO MEDICATIONS: Thyroid Medications: YES Which medication: Levothyroxine How Lon+ YEARS Additional Medications: YES HBP , CHOLESTEROL , MULTI VIT Additional History: 6+ YEARS AGO HAD IODINE TREATMENT FOR HYPERTHYROIDISM NOW IS IN HYPOTHYROID EXAM MEASUREMENTS: Bone mineral densitometry was performed using the [employer] System. Bone mineral density as measured about the Lumbar spine is: ----- L1-L4(G/cm2): 1.056 T Score Values are as follows: ----- L1: -0.6 ----- L2: -1.6 ----- L3: -1.2 ----- L4: -0.9 ----- L1-L4: -1.0 Bone mineral density BASELINE Bone mineral density about the R hip (g/cm2): 0.881 Bone mineral density about the L hip (g/cm2): 0.912 T Score values are as follows: -----R Neck: -1.1 -----L Neck: -0.9 -----R Total: -1.0 -----L Total: -0.8 Bone mineral density BASELINE FRAX%s: The graph provided illustrates a 7.4% chance for a major osteoporotic fx and a 0.5% chance fo r the hips probability for fx in 10 years time. IMPRESSION: Osteopenia (T Score between -2.5 and -1). There is slightly increased risk of fracture and the patient may be considered for treatment. Re-Screen 2-5 years. NOTE: T-SCORE=SD OF THE YOUNG ADULT MEAN.
--- NOTE | 2022-07-14 08:20 | MM ---
Reason for Exam: Screening (asymptomatic). Last mammogram was performed 1 year(s) and 7 month(s) ago. Patient History: Menarche at age 10. First Full-Term at age 15. Hysterectomy at age 23. Postmenopausal. Mother had breast cancer, age 56. Risk Values: Pilar 5 year model risk: 3.2%. NCI Lifetime model risk: 13.2%. Prior Study Comparison: 10/31/2013 Screening Mammogram, [facility]. 03/14/2015 Screening Mammogram, [facility]. 11/24/2020 Bilateral Screening Mammogram, [facility]. Tissue Density: The breast tissue is heterogeneously dense. This may lower the sensitivity of mammography. Findings: Analyzed By CAD. There is no suspicious group of microcalcifications or new suspicious mass in either breast. Overall Assessment: Negative, BI-RAD 1 Management: Screening Mammogram of both breasts in 1 year. A clinical breast exam by your physician is recommended on an annual basis and results should be correlated with mammographic findings. Electronically signed and approved by: Calvin Hood M.D. Radiologis
== END | disposition home or self-care (01) ==
LOC: RADMAMWWP 07:27
PROVIDERS: ATTEND Internal Medicine
DX: Z12.31 Encounter for screening mammogram for malignant neoplasm of breast (principal); Z13.820 Encounter for screening for osteoporosis; M85.89 Other specified disorders of bone density and structure, multiple sites; E03.9 Hypothyroidism, unspecified; E05.90 Thyrotoxicosis, unspecified without thyrotoxic crisis or storm; Z80.3 Family history of malignant neoplasm of breast; Z78.0 Asymptomatic menopausal state
CPT/HCPCS: 77067; 77080

== ENCOUNTER → 2022-09-03 | Outpatient (CLI) | payer BC, OTHER ==
--- NOTE | 2022-09-05 21:40 | MR ---
EXAMINATION TYPE: MR abdomen wo/w con DATE OF EXAM: 09/03/2022 COMPARISON: CT abdomen and pelvis August 11, [address] HISTORY: Abnormal CT CONTRAST: Standard multiplanar, multisequence MRI departmental protocol images were obtained without contrast a nd with 9 mL intravenous Gadavist gadolinium contrast. Imaging performed of the abdomen focusing on the bilateral adrenal glands. FINDINGS: Adrenals: Right adrenal gland remains normal in size. There is persistent oval left adrenal mass terrance uring 2.7 x 2.5 x 2.7 cm axial image 36 and coronal image 22. Mass shows diffuse signal dropout on in and out of phase imaging consistent with benign lipid rich adenoma. There is a rim-type enhancement with progressive centripetal filling on dynamic postcontrast imaging. Nonspecific finding. Other: Lung bases are grossly clear. The liver, gallbladder, and spleen appear within normal limits. Pancreas shows no worrisome mass. There is central parapelvic cyst in the left kidney redemonstrated. No hydronephrosis is seen bilaterally. No suspicious small or large bowel dilatation. No greater nnamdi n 3.0 cm AAA. Osseous structures are intact. IMPRESSION: There is 2.7 cm left adrenal mass has diffuse signal dropout consistent with benign lipid rich adenoma
== END | disposition home or self-care (01) ==
LOC: RADMRIMAIN 08:32
PROVIDERS: ATTEND Internal Medicine
DX: E27.8 Other specified disorders of adrenal gland (principal)
CPT/HCPCS: 74183; A9585

== ENCOUNTER → 2022-12-23 | Outpatient (CLI) | payer BC, OTHER ==
[2022-12-23 15:35] LABS: Basophils # (A) 0.04 X 10*3/uL (0.00-0.10); Basophils % (A) 0.9 %; Eosinophils # (A) 0.07 X 10*3/uL (0.04-0.35); Eosinophils % (A) 1.7 %; HGB 13.8 d/dL (12.0-15.0); Lymphocytes # (A) 1.33 X 10*3/uL (0.90-5.00); Lymphocytes % (A) 31.4 %; MCH 31.6 pg (27.0-32.0); MCHC 32.1 d/dL (32.0-37.0); MCV 98.4 FL (80.0-97.0); Mean Platelet Volume 9.9 FL (9.5-12.2); Monocytes # (A) 0.37 X 10*3/uL (0.20-1.00); Monocytes % (A) 8.7 %; NRBC Per 100 WBC 0 X 10*3/uL (0.00-0.01); Neutrophils # (A) 2.42 X 10*3/uL (1.80-7.70); Neutrophils % (A) 57.1 %; Platelet Count 251 X 10*3/uL (140-440); RBC 4.37 X 10*6/uL (4.10-5.20); RDW 12.7 % (11.5-14.5); WBC 4.24 X 10*3/uL (4.50-10.00)
[2022-12-23 16:18] LABS: Chol/HDL Ratio 2.53 Ratio; LDL Cholesterol,Calculated 94.2 mg/dL (0.0-131.0); Magnesium 2.2 mg/dL (1.5-2.4); VLDL Calculation 13.38 mg/dL (5.00-40.00)
[2022-12-23 16:19] LABS: ALT 16 U/L (8-44); AST 16 U/L (13-35); Albumin 4.2 d/dL (3.8-4.9); Albumin/Globulin Ratio 1.75 Ratio (1.60-3.17); Alkaline Phosphatase 83 U/L (41-126); BUN/Creat Ratio 24.83 Ratio (12.00-20.00); Blood Urea Nitrogen 14.9 mg/dL (9.0-27.0); Calcium 9.2 mg/dL (8.7-10.3); Carbon Dioxide 25.7 mmol/L (21.6-31.8); Chloride 107 mmol/L (96-109); Globulin 2.4 d/dL (1.6-3.3); Glucose 106 mg/dL (70-110); Potassium 5.2 mmol/L (3.5-5.5); Sodium 143 mmol/L (135-145); T4, Free (Free Thyroxine) 0.95 ng/dL (0.80-1.80); Total Bilirubin 0.3 mg/dL (0.3-1.2); Total Protein 6.6 d/dL (6.2-8.2)
== END | disposition home or self-care (01) ==
LOC: LABWHC1 07:46
PROVIDERS: ATTEND Internal Medicine
DX: I10 Essential (primary) hypertension (principal); E03.9 Hypothyroidism, unspecified; M85.80 Other specified disorders of bone density and structure, unspecified site
CPT/HCPCS: 36415; 80053; 80061; 82306; 82533; 83735; 84439; 84443; 85025

== ENCOUNTER → 2023-04-25 | Outpatient (CLI) | payer BC ==
[2023-04-25 09:16] LABS: Basophils % (A) 1 %; Eosinophils # (A) 0.1 k/uL (0-0.7); Eosinophils % (A) 2 %; HCT 44.9 % (34.0-46.0); HGB 14.6 gm/dL (11.4-16.0); Lymphocytes # (A) 1.6 k/uL (1.0-4.8); Lymphocytes % (A) 30 %; MCH 32.3 pg (25.0-35.0); MCHC 32.5 g/dL (31.0-37.0); MCV 99.6 fL (80.0-100.0); Mean Platelet Volume 7.8; Monocytes # (A) 0.2 k/uL (0-1.0); Monocytes % (A) 4 %; Neutrophils # (A) 3.2 k/uL (1.3-7.7); Neutrophils % (A) 61 %; Platelet Count 276 k/uL (150-450); RBC 4.51 m/uL (3.80-5.40); RDW 12.8 % (11.5-15.5); WBC 5.2 k/uL (3.8-10.6)
[2023-04-25 15:31] LABS: RBC Morphology Normal
[2023-04-25 18:49] LABS: Albumin 4.4 g/dL (3.8-4.9)
[2023-04-25 18:53] LABS: Hepatitis A Antibody IgM Nonreactive; Hepatitis B Core IgM Nonreactive; Hepatitis B Surface Antigen Nonreactive; Hepatitis C IgG Antibody Nonreactive
[2023-04-26 21:09] LABS: Gamma Globulin 1.06 g/dL (0.70-1.50)
== END | disposition home or self-care (01) ==
LOC: LABWHC1 07:24
PROVIDERS: ATTEND Internal Medicine
DX: Z11.59 Encounter for screening for other viral diseases (principal); I10 Essential (primary) hypertension; E03.9 Hypothyroidism, unspecified; M85.80 Other specified disorders of bone density and structure, unspecified site; D72.819 Decreased white blood cell count, unspecified
CPT/HCPCS: 36415; 80053; 80061; 80074; 82306; 82607; 82746; 83615; 84165; 84439; 84443; 85025; 86038; 86803; 87390